=== PATIENT | female | born 1955 | race Caucasian/White ===

== ENCOUNTER 2016-07-15 06:56 | Day surgery (SDC) | payer BC ==
[~2016-07-15] VITALS: Ht 144.8 cm; Wt 58.3 kg
[2016-07-15] MEDS ORDERED: METHOTREXATE (07:45)
[2016-07-15] MEDS ORDERED: GEMFIBROZIL (07:45)
[2016-07-15] MEDS ORDERED: NORCO (07:45)
[2016-07-15] MEDS ORDERED: METFORMIN (07:45)
[2016-07-15] MEDS ORDERED: LEVOTHYROXINE (07:45)
[2016-07-15] MEDS ORDERED: JANUVIA (07:45)
[2016-07-15 07:47] VITALS: Ht 144.8 cm; Wt 58.3 kg
[2016-07-15 08:09] VITALS: BP 128/59; PULSE 55; RESP 18
[2016-07-15] MEDS ORDERED: PROPOFOL 40 ML ONE (08:44)
[2016-07-15] MEDS ORDERED: LIDOCAINE 100 MG SYRINGE ONE (08:45)
[2016-07-15] MEDS ORDERED: PROPOFOL 20 ML ONE (09:59)
[2016-07-15 10:25] VITALS: BP 119/57; PULSE 50; RESP 18
[2016-07-15] MEDS ORDERED: ATROPINE 1 MG/10 ML SYRINGE ONE (12:53)
--- NOTE | 2016-07-16 07:48 | GILP ---
DATE OF PROCEDURE: NAME OF PROCEDURES: Colonoscopy and biopsy. SURGEON: Tuyet Amin MD PREOPERATIVE DIAGNOSIS: Screening colonoscopy. POSTOPERATIVE DIAGNOSES: 1. Colonoscopy all the way to the cecum. 2. Small polyp from the sigmoid colon was removed using the biopsy forceps. 3. Flat polyp in the right colon was removed in pieces using the biopsy forceps. 4. Internal hemorrhoids. INDICATION FOR THE PROCEDURE: Ms. Rohini Rodriguez is a 61-year-old female patient who was scheduled for s creening colonoscopy. The procedure and possible complications were well explained to the patient. The patient understood and consented to the procedure. DESCRIPTION OF PROCEDURE: Under the influence of anesthesia, the colonoscope was carefully introduc ed in the rectum, and under direct vision, it was advanced all the way to the cecum. FINDINGS: The patient had a sigmoid colon polyp which was removed using the biopsy forceps. She al so had a flat polyp in the right colon, and it was removed in pieces using the biopsy forceps. She had internal hemorrhoids. She tolerated the procedure very well and there was no complication from the procedure. At the end of the procedure, she was awake with stable vital signs and she was discharged home to the care of h er family. IMPRESSION: 1. Sigmoid colon polyp was removed using the biopsy forceps. 2. Flat polyp in the right colon was removed in pieces using the biopsy forceps. 3. Internal hemorrhoids. PLAN: Await histopathology report. Depending upon the histopathology, the time for the next screen ing colonoscopy will be decided. Dictated By: TUYET GONZALEZ/YAYO Conf#: [id number] DID#: [id number]
== END 2016-07-15 10:19 | disposition home or self-care (01) ==
LOC: GIL 06:56
PROVIDERS: ATTEND Internal Medicine Gastroenterology
DX: Z12.11 Encounter for screening for malignant neoplasm of colon (principal); D12.5 Benign neoplasm of sigmoid colon; K64.8 Other hemorrhoids; E11.9 Type 2 diabetes mellitus without complications
CPT/HCPCS: 45380; 82962; 88305; J0461; J2001; Z7610

== ENCOUNTER 2017-07-14 09:42 | Outpatient (CLI) | END 2017-07-14 16:42 | disposition home or self-care (01) ==

== ENCOUNTER 2017-08-15 14:50 | Inpatient (IN) | END 2017-08-16 13:25 | disposition home or self-care (01) | DRG 337 ==

== ENCOUNTER 2017-08-21 12:16 | Emergency (ER) | END 2017-08-21 16:54 | disposition home or self-care (01) ==

== ENCOUNTER 2017-08-27 09:40 | Outpatient (CLI) | END 2017-08-27 15:30 | disposition home or self-care (01) ==

== ENCOUNTER 2017-09-01 09:38 | Outpatient (CLI) | END 2017-09-01 16:59 | disposition home or self-care (01) ==

== ENCOUNTER 2017-09-10 15:37 | Outpatient (CLI) | END 2017-09-10 15:56 | disposition home or self-care (01) ==

== ENCOUNTER → 2018-05-27 | Outpatient (CLI) | END | disposition home or self-care (01) ==

== ENCOUNTER 2018-10-27 02:10 | Inpatient (IN) | payer BC ==
[~2018-10-27] VITALS: Ht 152.4 cm; Wt 62.5 kg
[~2018-10-27 02:10] MED LIST: AMIT10TA6 PO; CALC500T91 PO; FOLI-49 PO; GABA300C16 PO; GEMF600T8 PO; HYDR200T39 PO; IBUP-1542 PO; LEVO50TA7 PO; METF-849 PO; PRED5TAB PO; PROP10TA6 PO; SITA100T11 PO; SUCR1TAB56 PO; SULF500T5 PO
[2018-10-27 02:12] VITALS: Ht 152.4 cm; Wt 62.5 kg
[2018-10-27] MEDS ORDERED: morphine 4 MG/ML VIAL IV STA ×2 (03:10→04:24)
--- NOTE | 2018-10-27 03:27 | ERD ---
ER Documentation Chief Complaint Chief Complaint abd pain strated at 2230, today; no other GI s/s HPI 63-year-old female with a history of multiple abdominal surgeries presenting with lower abdominal pain that started around 1030 last night and has been progressively worsening. She denies any associated nausea, vomiting, fever, ch ills, constipation or diarrhea. The pain has been progressively worsening since it started. She describes it as a pressure-like, aching, cramping pain that radiates to her lower back. Worse with movement. No alleviating factors. Rates pain at a 10 out of 10. Has not been passing any gas since pain started. ROS All systems reviewed and are negative except as per history of present illness. Medications Home Meds Active Scripts Ibuprofen* (Motrin*) 600 Mg Tab, 600 MG PO Q8 for PAIN AND/OR INFLAMMATION, #30 TAB Prov:RUTHIE QUEVEDO MD 08/21/17 Reported Medications Hydroxychloroquine Sulfate* (Hydroxychloroquine Sulfate*) 200 Mg Tablet, 200 MG PO BID, TAB 08/21/17 Sulfasalazine* (Sulfazine*) 500 Mg Tablet, 500 MG PO DAILY, TAB 08/21/17 Gemfibrozil* (Gemfibrozil*) 600 Mg Tablet, 600 MG PO BID, TAB 08/21/17 Sitagliptin* (Januvia*) 100 Mg Tablet, 50 MG PO DAILY, #30 TAB 08/21/17 Folic Acid* (Folic Acid*) 1 Mg Tablet, 1 MG PO DAILY, TAB 08/21/17 Sucralfate* (Carafate*) 1 Gm Tab, 1 GM PO AC MEALS , TAB 08/15/17 Propranolol Hcl* (Propranolol Hcl*) 10 Mg Tablet, 10 MG PO BID, TAB 08/15/17 Prednisone* (Prednisone*) 5 Mg Tab, 5 MG PO DAILY, TAB 08/15/17 Calcium Carbonate ([id number]) 500 Mg Tablet, 500 MG PO BID, TAB 08/15/17 Metformin* (Glucophage*) 500 Mg Tab, 500 MG PO WITH MEALS, #90 TAB 08/15/17 Levothyroxine Sodium* (Levothyroxine Sodium*) 50 Mcg Tablet, 50 MCG PO BEFORE BREAKFAST, #30 TAB 08/15/17 Gabapentin* (Gabapentin*) 300 Mg Capsule, 300 MG PO TID, #60 CAP 08/15/17 Amitriptyline Hcl* (Amitriptyline Hcl*) 10 Mg Tablet, 10 MG PO BID, #30 TAB 08/15/17 Allergies Allergies: Coded Allergies: aspirin (Unverified Allergy, Unknown, 08/21/17) ASPIRIN ALLERGY PER PRE-OP ORDER SHEET PER HEAD CHOPPER NASREEN PT REPORTS VOMITING WITH ASPIRIN 08/15/17 1511 PMhx/Soc History of Surgery: Yes (appendectomy, C-sections, multiple hernia repairs) Anesthesia Reaction: No Hx Neurological Disorder: No Hx Respiratory Disorders: No Hx Cardiac Disorders: No Hx Psychiatric Problems: No Hx Miscellaneous Medical Probl: Yes (DM, osteoporosis) Hx Alcohol Use: No Hx Substance Use: No Hx Tobacco Use: No Smoking Status: Never smoker FmHx Family History: No diabetes Physical Exam Vitals Vital Signs Date Temp Pulse Resp B/P (MAP) Pulse Ox O2 O2 Flow FiO2 Time Delivery Rate 10/27/18 53 14 120/54 98 Nasal 3.0 05:51 (76) Cannula 10/27/18 97.8 62 14 128/80 99 Room Air 02:44 (96) 10/27/18 97.8 54 19 198/79 98 02:12 (118) Physical Exam Const: In distress secondary to pain. Nontoxic Head: Atraumatic Eyes: Normal Conjunctiva ENT: Normal External Ears, Nose and Mouth. Neck: Full range of motion. No meningismus. Resp: Clear to auscultation bilaterally Cardio: Regular rate and rhythm, no murmurs Abd: Soft, mildly distended, tender to palpation in the suprapubic and left lower quadrants with no rebound or guarding. No masses. Hypoactive bowel sounds Skin: No petechiae or rashes Back: No midline or flank tenderness Ext: No cyanosis, or edema Neur: Awake and alert Psych: Normal Mood and Affect Result Diagram: 10/27/18 0240 10/27/18 0240 Results 24 hrs Laboratory Tests Test 10/27/18 02:40 White Blood Count 10.4 10^3/ul Red Blood Count 4.34 10^6/ul Hemoglobin 13.0 g/dl Hematocrit 39.1 % Mean Corpuscular Volume 90.1 fl Mean Corpuscular Hemoglobin 30.0 pg Mean Corpuscular Hemoglobin Concent 33.2 g/dl Red Cell Distribution Width 12.2 % Platelet Count 220 10^3/UL Mean Platelet Volume 10.3 fl Immature Granulocytes % 0.600 % Neutrophils % 53.7 % Lymphocytes % 38.2 % Monocytes % 6.3 % Eosinophils % 0.8 % Basophils % 0.4 % Nucleated Red Blood Cells % 0.0 /100WBC Immature Granulocytes # 0.060 10^3/ul Neutrophils # 5.6 10^3/ul Lymphocytes # 4.0 10^3/ul Monocytes # 0.7 10^3/ul Eosinophils # 0.1 10^3/ul Basophils # 0.0 10^3/ul Nucleated Red Blood Cells # 0.0 10^3/ul Urine Color YELLOW Urine Clarity CLEAR Urine pH 5.0 Urine Specific [place] 1.017 Urine Ketones NEGATIVE mg/dL Urine Nitrite NEGATIVE mg/dL Urine Bilirubin NEGATIVE mg/dL Urine Urobilinogen NEGATIVE mg/dL Urine Leukocyte Esterase NEGATIVE Louie/ul Urine Hemoglobin NEGATIVE mg/dL Urine Glucose NEGATIVE mg/dL Urine Total Protein NEGATIVE mg/dl Sodium Level 143 mmol/L Potassium Level 4.4 mmol/L Chloride Level 106 mmol/L Carbon Dioxide Level 26 mmol/L Anion Gap 11 Blood Urea Nitrogen 15 mg/dl Creatinine 0.52 mg/dl Est Glomerular Filtrat Rate mL/min > 60 mL/min Glucose Level 140 mg/dl Calcium Level 10.1 mg/dl Total Bilirubin 0.2 mg/dl Direct Bilirubin 0.00 mg/dl Indirect Bilirubin 0.2 mg/dl Aspartate Amino Transf (AST/SGOT) 37 IU/L Alanine Aminotransferase (ALT/SGPT) 31 IU/L Alkaline Phosphatase 60 IU/L Total Protein 7.8 g/dl Albumin 4.7 g/dl Globulin 3.10 g/dl Albumin/Globulin Ratio 1.51 Lipase 101 U/L Current Medications Medications Dose Sig/Cathi Start Time Status Last (Trade) Ordered Route PRN Stop Time Admin Dose Reason Admin Morphine 4 mg ONCE STAT 10/27/18 DC 10/27/18 Sulfate IV 03:10 03:29 (morphine) 10/27/18 03:12 Morphine 4 mg ONCE STAT 10/27/18 DC 10/27/18 Sulfate IV 04:24 04:28 (morphine) 10/27/18 04:25 Simethicone 160 mg ONCE ONCE 10/27/18 DC 10/27/18 (Mylicon) PO 06:00 06:02 10/27/18 06:01 Ondansetron 4 mg BRIDGE ORDER 10/27/18 HCl (Zofran PRN IV 06:30 10/28/18 Inj) NAUSEA/VOMITI 06:29 NG 650 mg ER BRIDGE 10/27/18 Acetaminophen PRN PO 06:30 10/28/18 (Tylenol .MILD PAIN 06:29 Tab) 1-3 OR TEMP Procedures/MDM EMERGENT LABS AND DIAGNOSTIC STUDIES: Lab Results above were reviewed and interpreted by me. CBC: no anemia or evidence of infection CMP: No evidence of clinically significant electrolyte abnormality, acidosis, renal failure, hypoglycemia, liver disease, or biliary obstruction Lipase: no evidence of pancreatitis UA: no evidence of infection Radiology Results as interpreted by Radiology below were reviewed by Talisha bhatti MD: CT abdomen and pelvis: No acute abnormalities. Left ovarian cyst 2.5 cm Pelvic ultrasound: Left ovarian cyst noted, no evidence of torsion or free fluid Initial Nursing notes reviewed. Previous Medical Records requested via the Electronic Health Record. EMERGENCY DEPARTMENT COURSE / MEDICAL DECISION MAKING: Differential includes but is not limited to appendicitis, colitis, cystitis, ureterolithiasis, diverticulitis, abdominal aortic dissection, bowel obstruction, fecal impaction, ovarian torsion, tubo-ovarian abscess, PID. Bloodwork, and UA ordered to evaluate for above. CT abdomen and pelvis showed a left ovarian small cyst without any other acute abnormalities. Patient was initially treated with pain medications with only minimal relief of her pain. Given her persistent severe pain, additional pain medications were given and ultrasound was done to evaluate for possible ovarian torsion. However ultr asound was normal. Upon reevaluation, patient still continues to have left lower quadrant severe abdominal pain. At this time I have a low suspicion for AAA, ischemic bowel, or aortic dissection. However given the severity of her pain, patient does not feel comfortable going home and will be admitted for observation and serial abdominal exams. Patient was accepted for admission to [facility] by Dr. House. Departure Diagnosis: Primary Impression: Abdominal pain Abdominal location: lower abdomen, unspecified Qualified Codes: R10.30 - Lower abdominal pain, unspecified Condition: Stable EKRONEN KRAUSE MD Oct 27, 2018 03:27
[2018-10-27] MEDS ORDERED: IOHEXOL 300MG/ML 150 ML BTL ONE ×2 (06:12→13:42)
[2018-10-27] MEDS ORDERED: SOD CHLORIDE 0.9% 100 ML ONE ×2 (06:12→13:42)
[2018-10-27] MEDS ORDERED: ACETAMINOPHEN 325 MG TAB PO PRN ×2 (06:30→07:00)
[2018-10-27] MEDS ORDERED: ONDANSETRON 4 MG INJ IV PRN (06:30)
[2018-10-27] MEDS ORDERED: CALC1TAB79 PO (06:58)
--- NOTE | 2018-10-27 06:58 | HP ---
Date/Time of Note Date/Time of Note DATE: 10/27/18 TIME: 06:48 Assessment/Plan VTE Prophylaxis SCD applied (from Nsg): Yes Pharmacological prophylaxis: NA/contraindicated Pharm contraindication: low risk/ambulating Lines/Catheters IV Catheter Type (from Nrsg): Saline Lock Assessment/Plan Hospital Course This is a 63-year-old female being admitted to the [facility] for: #1 intractable abdominal pain: Pain appears to be occurring at the site of previous ventral hernia repair. There is tenderness palpation over the left lower abdomen at the site of the previous hernia repair as well as pain to palpation over the right lower abdomen as well. CT of the abdomen pelvis without contrast did not show any acute abnormalities. I will proceed with a CT of the abdomen pelvis with IV and p.o. contrast to further evaluate. PRN morphine for pain. Zofran for nausea. . Patient has had a history of multiple abdominal surgeries in the past as well as hernia repairs. N.p.o. except medica tions, IV fluid hydration with normal saline. Consider surgical consultation #2 diabetes mellitus: We will check a hemoglobin A1c, hold off oral medications at the current time. #3 arthritis/psoriasis: Resume prednisone, will need to confirm whether patient is on Plaquenil consider holding this at the current time given patient's pain #4 hypothyroidism: Resume levothyroxine as indicated #5 anxiety: Resume patient's home medications indicated #6 DVT and GI prophylaxis: SCDs, Protonix since patient is on steroids Further treatment strategy will be implemented as per the clinical course. Result Diagram: 10/27/18 0240 10/27/18 0240 Results 24hrs Laboratory Tests Test 10/27/18 02:40 White Blood Count 10.4 Red Blood Count 4.34 # Hemoglobin 13.0 # Hematocrit 39.1 # Mean Corpuscular Volume 90.1 Mean Corpuscular Hemoglobin 30.0 Mean Corpuscular Hemoglobin Concent 33.2 Red Cell Distribution Width 12.2 Platelet Count 220 Mean Platelet Volume 10.3 Immature Granulocytes % 0.600 H Neutrophils % 53.7 Lymphocytes % 38.2 Monocytes % 6.3 Eosinophils % 0.8 Basophils % 0.4 Nucleated Red Blood Cells % 0.0 Immature Granulocytes # 0.060 H Neutrophils # 5.6 Lymphocytes # 4.0 H Monocytes # 0.7 Eosinophils # 0.1 Basophils # 0.0 Nucleated Red Blood Cells # 0.0 Urine Color YELLOW Urine Clarity CLEAR Urine pH 5.0 Urine Specific [place] 1.017 Urine Ketones NEGATIVE Urine Nitrite NEGATIVE Urine Bilirubin NEGATIVE Urine Urobilinogen NEGATIVE Urine Leukocyte Esterase NEGATIVE Urine Hemoglobin NEGATIVE Urine Glucose NEGATIVE Urine Total Protein NEGATIVE Sodium Level 143 Potassium Level 4.4 Chloride Level 106 Carbon Dioxide Level 26 Anion Gap 11 Blood Urea Nitrogen 15 Creatinine 0.52 Est Glomerular Filtrat Rate mL/min > 60 Glucose Level 140 Calcium Level 10.1 Total Bilirubin 0.2 Direct Bilirubin 0.00 Indirect Bilirubin 0.2 Aspartate Amino Transf (AST/SGOT) 37 Alanine Aminotransferase (ALT/SGPT) 31 Alkaline Phosphatase 60 Total Protein 7.8 Albumin 4.7 Globulin 3.10 Albumin/Globulin Ratio 1.51 Lipase 101 HPI/ROS Admit Date/Time Admit Date/Time Hx of Present Illness Chief complaint: Left lower quadrant abdominal pain radiating to the whole abdomen This is a 63-year-old female with a past medical history of multiple abdominal surgeries and status post multiple hernia repairs who presented to the emergency department with left lower abdomen pain. Patient reports that she started experiencing pain last night of the left lower abdomen that then radiated across to the right side and then up her abdomen into the back. She took some anti-gas pain thinking that this was related to gas however it did not get better. She stated that the pain came in waves every 5 to 15 minutes. As the pain continued to get worse she came into the emergency department. Patient denies any nausea or vomiting. She does report that she had 2 bowel movements yesterday. She denies any fevers. She does report that the pain on the left side is around the area of her previous ventral hernia. Denies any hematochezia or hematuria or hematemesis. Allergies: Aspirin medications: See Aug Const: As per HPI Eyes : No pain discharge or redness or change in visual acuity ENT: No pain, sore throat, congestion, congestion, dysphagia or discharge Respiratory: No shortness of breath, cough, sputum, wheezing, or pleuritic pain Cardiovascular: No chest pain, palpitation, PND, or edema GI : As per HPI Genitourinary: No dysuria, hematuria, flank pain , discharge or CVA tenderness Musculoskeletal: No joint pain, back pain, neck pain, restricted range of motion in neck or joints Skin: No rash, bruising or hives Neuro: No headache, dizziness, syncope, seizure, focal weakness Endocrine: No polyuria, polydipsia, temperature intolerance Psych: No hallucination, depression, anxiety or suicidal ideation PMH/Family/Social Past Medical History Arthritis/psoriasis, mood disorder, Medications Current Medications Ondansetron HCl (Zofran Inj) 4 mg BRIDGE ORDER PRN IV NAUSEA/VOMITING; Start 10/27/18 at 06:30; Stop 10/28/18 at 06:29 Acetaminophen (Tylenol Tab) 650 mg ER BRIDGE PRN PO .MILD PAIN 1-3 OR TEMP; Start 10/27/18 at 06:30; Stop 10/28/18 at 06:29 Coded Allergies: aspirin (Unverified Allergy, Unknown, 10/27/18) ASPIRIN ALLERGY PER PRE-OP ORDER SHEET PER PSYCHOLOGY TECHNICIAN NASREEN, PT REPORTS VOMITING WITH ASPIRIN 08/15/17 1511 Past Surgical History History of about 41 years ago and then at 37 years ago. Status post hernia repair, presumably on the left about 17 years ago. Status post appendicitis about 15 years ago. Abdominal ventral hernias (small 4 cm lower midline partial hernia; complex right lower quadrant 6 cm x 3 cm ventral hernia in between muscle layers). S/p laparoscopic assisted complex abdominal ventral hernia repair of the right lower quadrant 6 cm x 3 cm defect site with layer closure reinforced with Marlex mesh 13 cm x 7.5 cm, primary repair of partial midline ventral hernia (no mesh) and laparoscopic lysis of adhesions at [facility] Violeta Merchant MD on 08/15/17. Family History Significant Family History: no pertinent family hx Social History Alcohol Use: none Smoking Status: Never smoker Drug Use: none Exam/Review of Systems Vital Signs Vitals Vital Signs Date Temp Pulse Resp B/P (MAP) Pulse Ox O2 O2 Flow FiO2 Time Delivery Rate 10/27/18 53 14 120/54 98 Nasal 3.0 05:51 (76) Cannula 10/27/18 97.8 02:44 Exam Exam General: Patient is a pleasant female currently lying in bed in mild distress from abdominal pain HEENT: Atraumatic, normocephalic. The pupils are equal, round and reactive. Extraocular motor are intact Neck: Supple with full range of motion. No rigidity or meningismus Chest: Nontender Lungs: Clear to auscultation bilaterally no crackles rales or wheezing Heart: Normal S1-S2, Regular rhythm and rate. No murmur, S3, or S4 Abdomen: Soft , nontender, nondistended , bowel sounds are present. No guarding no rebound tenderness , No masses or organomegaly. No costovertebral temporal angle mass Extremities: Normal to inspection, no edema no cyanosis Neurologic: Normal mental status, speech normal, cranial nerves II through XII are intact, motor and sensory are intact, no focal weakness Additional Comments PROCEDURE: CT Abdomen and pelvis without contrast. CLINICAL INDICATION: Abdominal pain TECHNIQUE: CT scan of the abdomen and pelvis without contrast was performed on a multidetector high-resolution CT scan. . Coronal and sagittal reformatted images were obtained from the axial source images. Standard CT scan of the abdomen pelvis without contrast protocols were performed. The total exam CTDI equals 14.67 mGy and the total exam DLP equals 790.37 mGy- cm. One or more of the following dose reduction techniques were used: - Automated exposure control. - Adjustment of the mA and/or kV according to patient size. Use of iterative reconstruction technique. Dicom images are available COMPARISON: CT abdomen pelvis 08/21/2017 FINDINGS: The kidneys are normal in size without calcified calculi hydronephrosis or intra renal masses bilaterally. No evidence of ureteral calcified calculi or dil atation. Partially contracted otherwise unremarkable urinary bladder. Status post hysterectomy. No change 2.5 cm left adnexal cyst consistent with ovarian / para ovarian cyst. A follow-up pelvic ultrasound may be helpful. No other adnexal masses. Diverticular changes of the descending and sigmoid colon without CT evidence of diverticulitis. Colon is otherwise unremarkable. A definite appendix is not visualized however there is no CT evidence of appendicitis. Stomach and small bowel unremarkable. Liver spleen pancreas adrenal glands and gallbladder unremarkable. No evidence biliary ductal dilation. No evidence of intra-abdominal free air, free fluid, abscesses or lymphadenopathy. Atherosclerosis of the aorta without aneurysm. Coronary artery disease. Tiny calcified granuloma medial right lower lobe. Mild chronic basilar interstitial lung disease. Abdominal pelvic wall unremarkable. Degenerate changes lower thoracic and lumbar spine. No acute osseous findings are osteoblastic/osteolytic lesions. IMPRESSION: 1. Diverticulosis of the descending and sigmoid colon without CT evidence of diverticulitis. 2. No change 2.5 cm left adnexal cyst consistent with ovarian / para ovarian cyst. Follow-up pelvic ultrasound may be helpful. 3. No calcified urinary calculi or obstructive uropathy. RPTAT:AAJJ David Tian Physician Date Time Electronically viewed and signed by David Tian Physician on 10/27/2018 04:24 BM/ CC: RONEN ARAUJO MD [id number] HONG GAINES Oct 27, 2018 06:58
[2018-10-27] MEDS ORDERED: GABA300C16 PO (06:59)
[2018-10-27] MEDS ORDERED: LEVO50TA71 PO (06:59)
[2018-10-27] MEDS ORDERED: HYDR200T5 PO (06:59)
[2018-10-27] MEDS ORDERED: DOCUSATE SODIUM 100 MG CAP PO PRN (07:00)
[2018-10-27] MEDS ORDERED: NACL 0.9% 3 ML SYG IV SCH (07:00)
[2018-10-27] MEDS ORDERED: METF500T24 PO (07:00)
[2018-10-27] MEDS ORDERED: PRED5TAB PO (07:00)
[2018-10-27] MEDS ORDERED: BISACODYL (EC) 5 MG TAB PO PRN (07:00)
[2018-10-27] MEDS ORDERED: PROP10TA6 PO (07:01)
[2018-10-27] MEDS ORDERED: SUCR1TAB56 PO (07:01)
[2018-10-27] MEDS ORDERED: SULF500T5 PO (07:02)
[2018-10-27] MEDS ORDERED: TRA100 PO (07:02)
[2018-10-27] MEDS ORDERED: KETOROLAC 15 MG INJ IV PRN (07:30)
[2018-10-27] MEDS ORDERED: PANTOPRAZOLE 40 MG INJ IV ONE (07:30)
[2018-10-27 07:49] VITALS: BP 120/69; PULSE 53; RESP 20
[2018-10-27] MEDS ORDERED: IOHEXOL 14.3 MG(I)/ML (ADULT) BTL PO ONE (08:00)
[2018-10-27] MEDS: morphine 2 MG INJ IV PRN ×3 (08:22→16:35)
[2018-10-27] MEDS: predniSONE 5 MG TAB PO SCH (09:00)
[2018-10-27] MEDS: GABAPENTIN 300 MG CAP PO SCH ×3 (09:00→20:22)
[2018-10-27] MEDS: SOD CHLORIDE 0.9% 1,000 ML IV SCH ×2 (10:13→20:18)
--- NOTE | 2018-10-27 13:47 | PN ---
Date/Time of Note Date/Time of Note DATE: 10/27/18 TIME: 13:41 Assessment/Plan VTE Prophylaxis Risk score (from Nsg)>0 risk: 3 SCD applied (from Nsg): Yes Pharmacological prophylaxis: NA/contraindicated Pharm contraindication: low risk/ambulating Lines/Catheters IV Catheter Type (from Nrsg): Peripheral IV Assessment/Plan Assessment/Plan 1. Intractable abdominal pain - CT scan with IV/PO contrast ordered for further evaluation given noncontrast was unrevealing - pain control and Zofran PRN - Pelvic US reveals left ovarian cyst 2. Diabetes mellitus - A1c ordered - ISS and accuchecks 3. Arthritis/psoriasis - continue on Prednisone 4. Hypothyroidism - continue levothyroxine 5. Anxiety - stable 6. Disposition - Awaiting CT scan with contrast and plan of care based on results. Result Diagram: 10/27/18 0240 10/27/18 0240 Results 24hrs Laboratory Tests Test 10/27/18 02:40 White Blood Count 10.4 Red Blood Count 4.34 # Hemoglobin 13.0 # Hematocrit 39.1 # Mean Corpuscular Volume 90.1 Mean Corpuscular Hemoglobin 30.0 Mean Corpuscular Hemoglobin Concent 33.2 Red Cell Distribution Width 12.2 Platelet Count 220 Mean Platelet Volume 10.3 Immature Granulocytes % 0.600 H Neutrophils % 53.7 Lymphocytes % 38.2 Monocytes % 6.3 Eosinophils % 0.8 Basophils % 0.4 Nucleated Red Blood Cells % 0.0 Immature Granulocytes # 0.060 H Neutrophils # 5.6 Lymphocytes # 4.0 H Monocytes # 0.7 Eosinophils # 0.1 Basophils # 0.0 Nucleated Red Blood Cells # 0.0 Urine Color YELLOW Urine Clarity CLEAR Urine pH 5.0 Urine Specific [place] 1.017 Urine Ketones NEGATIVE Urine Nitrite NEGATIVE Urine Bilirubin NEGATIVE Urine Urobilinogen NEGATIVE Urine Leukocyte Esterase NEGATIVE Urine Hemoglobin NEGATIVE Urine Glucose NEGATIVE Urine Total Protein NEGATIVE Sodium Level 143 Potassium Level 4.4 Chloride Level 106 Carbon Dioxide Level 26 Anion Gap 11 Blood Urea Nitrogen 15 Creatinine 0.52 Est Glomerular Filtrat Rate mL/min > 60 Glucose Level 140 Calcium Level 10.1 Total Bilirubin 0.2 Direct Bilirubin 0.00 Indirect Bilirubin 0.2 Aspartate Amino Transf (AST/SGOT) 37 Alanine Aminotransferase (ALT/SGPT) 31 Alkaline Phosphatase 60 Total Protein 7.8 Albumin 4.7 Globulin 3.10 Albumin/Globulin Ratio 1.51 Lipase 101 Subjective 24 Hr Interval Summary Free Text/Dictation Patient is complaining of diffuse abdominal pain that starts in LLQ then radiat es to naval and RLQ then epigastric area. Exam/Review of Systems Exam Vitals Vital Signs Date Temp Pulse Resp B/P (MAP) Pulse Ox O2 O2 Flow FiO2 Time Delivery Rate 10/27/18 97.5 53 20 120/69 96 07:49 (86) 10/27/18 Nasal 2.0 06:49 Cannula Exam General: distress secondary to pain. Chest: Nontender Lungs: Clear to auscultation bilaterally no crackles rales or wheezing Heart: Normal S1-S2, Regular rhythm and rate. No murmur, S3, or S4 Abdomen: Soft , tender diffusely, nondistended , bowel sounds are present. No guarding no rebound tenderness Extremities: Normal to inspection, no edema no cyanosis Results Results 24hrs Laboratory Tests Test 10/27/18 02:40 White Blood Count 10.4 Red Blood Count 4.34 # Hemoglobin 13.0 # Hematocrit 39.1 # Mean Corpuscular Volume 90.1 Mean Corpuscular Hemoglobin 30.0 Mean Corpuscular Hemoglobin Concent 33.2 Red Cell Distribution Width 12.2 Platelet Count 220 Mean Platelet Volume 10.3 Immature Granulocytes % 0.600 H Neutrophils % 53.7 Lymphocytes % 38.2 Monocytes % 6.3 Eosinophils % 0.8 Basophils % 0.4 Nucleated Red Blood Cells % 0.0 Immature Granulocytes # 0.060 H Neutrophils # 5.6 Lymphocytes # 4.0 H Monocytes # 0.7 Eosinophils # 0.1 Basophils # 0.0 Nucleated Red Blood Cells # 0.0 Urine Color YELLOW Urine Clarity CLEAR Urine pH 5.0 Urine Specific [place] 1.017 Urine Ketones NEGATIVE Urine Nitrite NEGATIVE Urine Bilirubin NEGATIVE Urine Urobilinogen NEGATIVE Urine Leukocyte Esterase NEGATIVE Urine Hemoglobin NEGATIVE Urine Glucose NEGATIVE Urine Total Protein NEGATIVE Sodium Level 143 Potassium Level 4.4 Chloride Level 106 Carbon Dioxide Level 26 Anion Gap 11 Blood Urea Nitrogen 15 Creatinine 0.52 Est Glomerular Filtrat Rate mL/min > 60 Glucose Level 140 Calcium Level 10.1 Total Bilirubin 0.2 Direct Bilirubin 0.00 Indirect Bilirubin 0.2 Aspartate Amino Transf (AST/SGOT) 37 Alanine Aminotransferase (ALT/SGPT) 31 Alkaline Phosphatase 60 Total Protein 7.8 Albumin 4.7 Globulin 3.10 Albumin/Globulin Ratio 1.51 Lipase 101 Medications Medication Current Medications Ondansetron HCl (Zofran Inj) 4 mg BRIDGE ORDER PRN IV NAUSEA/VOMITING; Start 10/27/18 at 06:30; Stop 10/28/18 at 06:29 Acetaminophen (Tylenol Tab) 650 mg ER BRIDGE PRN PO .MILD PAIN 1-3 OR TEMP; Start 10/27/18 at 06:30; Stop 10/28/18 at 06:29 Sodium Chloride 1,000 ml @ 75 mls/hr [id number] IV Last administered on 10/27/18at 10:13; Admin Dose 75 MLS/HR; Start 10/27/18 at 06:58 IV Flush (NS 3 ml) 3 ml PER PROTOCOL IV ; Start 10/27/18 at 07:00 Ondansetron HCl (Zofran Inj) 4 mg Q6H PRN IV NAUSEA/VOMITING; Start 10/27/18 at 07:00 Acetaminophen (Tylenol Tab) 650 mg Q6H PRN PO .PAIN 1-3 OR TEMP; Start 10/27/18 at 07:00 Morphine Sulfate (morphine) 2 mg Q4H PRN IV .SEVERE PAIN 7-10 Last administered on 10/27/18at 12:45; Admin Dose 2 MG; Start 10/27/18 at 07:00 Docusate Sodium (Colace) 100 mg Q12H PRN PO .CONSTIPATION; Start 10/27/18 at 07:00 Bisacodyl (Dulcolax) 5 mg DAILY PRN PO .CONSTIPATION; Start 10/27/18 at 07:00 Ketorolac Tromethamine (Toradol) 15 mg Q6H PRN IV PAIN Last administered on 10/27/18at 10:00; Admin Dose 15 MG; Start 10/27/18 at 07:30; Stop 10/30/18 at 07:29 Gabapentin (Neurontin) 300 mg TID PO ; Start 10/27/18 at 09:00 Levothyroxine Sodium (Synthroid) 50 mcg BEFORE BREAKFAST PO ; Start 10/28/18 at 07:00 Prednisone (Prednisone) 5 mg DAILY PO ; Start 10/27/18 at 09:00 Trazodone HCl (Desyrel) 100 mg QHS PO ; Start 10/27/18 at 21:00 Pantoprazole (Protonix Iv) 40 mg DAILY@06 IV ; Start 10/28/18 at 06:00 RODNEY ATKINSON MD Oct 27, 2018 13:47
[2018-10-27 14:20] VITALS: BP 125/60; PULSE 57; RESP 20
[2018-10-27] MEDS ORDERED: HYDROmorphONE 1 MG/ML SYG IV PRN (17:00)
[2018-10-27] MEDS: ONDANSETRON 4 MG INJ IV PRN (18:14)
[2018-10-27] MEDS: HYOSCYAMINE 0.125 MG SUBL TAB PO PRN (18:15)
[2018-10-27] MEDS: traZODone 100 MG TAB PO SCH (20:23)
[2018-10-27 20:51] VITALS: BP 136/73; PULSE 63; RESP 18
[2018-10-27] MEDS: HYDROmorphONE 2 MG/ML SYG IV PRN (21:00)
[2018-10-27] MEDS: METHYLPREDNISOLONE 40 MG INJ IV SCH (23:12)
[2018-10-28] MEDS: HYDROmorphONE 2 MG/ML SYG IV PRN ×4 (01:33→13:56)
[2018-10-28 02:00] VITALS: BP 131/60; PULSE 98; RESP 18
[2018-10-28] MEDS: METHYLPREDNISOLONE 40 MG INJ IV SCH ×2 (05:48→13:01)
[2018-10-28] MEDS: SOD CHLORIDE 0.9% 1,000 ML IV SCH (05:52)
[2018-10-28] MEDS ORDERED: PANTOPRAZOLE 40 MG INJ IV SCH (06:00)
[2018-10-28] MEDS: LEVOTHYROXINE 50 MCG TAB PO SCH (06:21)
[2018-10-28 07:52] VITALS: BP 105/59; PULSE 95; RESP 18
[2018-10-28] MEDS: GABAPENTIN 300 MG CAP PO SCH ×3 (09:31→20:09)
[2018-10-28] MEDS: predniSONE 5 MG TAB PO SCH (09:31)
[2018-10-28] MEDS: HYOSCYAMINE 0.125 MG SUBL TAB PO PRN ×2 (11:21→16:09)
--- NOTE | 2018-10-28 12:22 | PN ---
Date/Time of Note Date/Time of Note DATE: 10/28/18 TIME: 12:18 Assessment/Plan VTE Prophylaxis Risk score (from Ns)>0 risk: 3 SCD applied (from [facility] [place] SCD contraindicated: patient refusal Pharmacological prophylaxis: NA/contraindicated Pharm contraindication: bleeding Lines/Catheters IV C[facility]ter Type (from [facility]): Peripheral IV Urinary Cath still in place: No Assessment/Plan Assessment/Plan 1. Acute lower GI bleeding - started at 2am with blood clots - GI consulted for further recommendations. last colonoscopy was 3 years ago with findings of polyps per pt - CT scan results noted - PPI on board - Clear diet 2. Acute enteritis - pain control and supportive care 3. Diabetes mellitus - A1c noted - ISS and accuchecks 4. Arthritis/psoriasis - will hold Prednisone in setting of GI bleed 5. Hypothyroidism - continue levothyroxine 6. Anxiety - stable 7. Disposition - GI consulted for evaluation of lower GI bleed Result Diagram: 10/28/18 0435 10/28/18 0435 Results 24hrs Laboratory Tests Test 10/28/18 03:55 10/28/18 04:35 10/28/18 07:00 Stool Occult Blood POSITIVE White Blood Count 10.7 Red Blood Count 4.15 L Hemoglobin 12.5 Hematocrit 37.9 Mean Corpuscular Volume 91.3 Mean Corpuscular Hemoglobin 30.1 Mean Corpuscular Hemoglobin Concent 33.0 Red Cell Distribution Width 12.0 Platelet Count 184 Mean Platelet Volume 10.1 Immature Granulocytes % 0.400 Neutrophils % 91.0 H Lymphocytes % 6.2 L Monocytes % 2.3 Eosinophils % 0.0 Basophils % 0.1 Nucleated Red Blood Cells % 0.0 Immature Granulocytes # 0.040 H Neutrophils # 9.8 H Lymphocytes # 0.7 L Monocytes # 0.3 Eosinophils # 0.0 Basophils # 0.0 Nucleated Red Blood Cells # 0.0 Sodium Level 141 Potassium Level 4.6 Chloride Level 109 Carbon Dioxide Level 24 Anion Gap 8 Blood Urea Nitrogen 16 Creatinine 0.49 Est Glomerular Filtrat Rate mL/min > 60 Glucose Level 178 Hemoglobin A1c 6.6 H Calcium Level 8.4 Magnesium Level 2.0 Total Bilirubin 0.4 Direct Bilirubin 0.00 Indirect Bilirubin 0.4 Aspartate Amino Transf (AST/SGOT) 24 Alanine Aminotransferase (ALT/SGPT) 22 Alkaline Phosphatase 43 Total Protein 6.0 #L Albumin 3.6 # Globulin 2.40 Albumin/Globulin Ratio 1.50 Triglycerides Level 89 Cholesterol Level 179 LDL Cholesterol, Calculated 112 HDL Cholesterol 49 Cholesterol/HDL Ratio 3.6 Thyroid Stimulating Hormone (TSH) 0.335 L Lactic Acid Level 1.1 Subjective 24 Hr Interval Summary Free Text/Dictation Patient still experiencing severe pain. She states she was experiencing bright blood with clots per rectum starting at 2am. CT findings and plan of care discussed with patient and nurse at bedside. Exam/Review of Systems Exam Vitals Vital Signs Date Temp Pulse Resp B/P (MAP) Pulse Ox O2 O2 Flow FiO2 Time Delivery Rate 10/28/18 98.4 95 18 105/59 95 07:52 (74) 10/27/18 Nasal 2.0 06:49 Cannula Intake and Output 10/27/18 10/27/18 10/28/18 1515:00 23:00 07:00 IntakeIntake Total 225 ml 360 ml OutputOutput Total 200 ml BalanceBalance 225 ml 160 ml Exam General: distress secondary to pain. answering questions appropriately Chest: Nontender Lungs: Clear to auscultation bilaterally no crackles rales or wheezing Heart: Normal S1-S2, Regular rhythm and rate. No murmur, S3, or S4 Abdomen: Soft , tender diffusely, nondistended , bowel sounds are present. No guarding no rebound tenderness Extremities: Normal to inspection, no edema no cyanosis Results Results 24hrs Laboratory Tests Test 10/28/18 03:55 10/28/18 04:35 10/28/18 07:00 Stool Occult Blood POSITIVE White Blood Count 10.7 Red Blood Count 4.15 L Hemoglobin 12.5 Hematocrit 37.9 Mean Corpuscular Volume 91.3 Mean Corpuscular Hemoglobin 30.1 Mean Corpuscular Hemoglobin Concent 33.0 Red Cell Distribution Width 12.0 Platelet Count 184 Mean Platelet Volume 10.1 Immature Granulocytes % 0.400 Neutrophils % 91.0 H Lymphocytes % 6.2 L Monocytes % 2.3 Eosinophils % 0.0 Basophils % 0.1 Nucleated Red Blood Cells % 0.0 Immature Granulocytes # 0.040 H Neutrophils # 9.8 H Lymphocytes # 0.7 L Monocytes # 0.3 Eosinophils # 0.0 Basophils # 0.0 Nucleated Red Blood Cells # 0.0 Sodium Level 141 Potassium Level 4.6 Chloride Level 109 Carbon Dioxide Level 24 Anion Gap 8 Blood Urea Nitrogen 16 Creatinine 0.49 Est Glomerular Filtrat Rate mL/min > 60 Glucose Level 178 Hemoglobin A1c 6.6 H Calcium Level 8.4 Magnesium Level 2.0 Total Bilirubin 0.4 Direct Bilirubin 0.00 Indirect Bilirubin 0.4 Aspartate Amino Transf (AST/SGOT) 24 Alanine Aminotransferase (ALT/SGPT) 22 Alkaline Phosphatase 43 Total Protein 6.0 #L Albumin 3.6 # Globulin 2.40 Albumin/Globulin Ratio 1.50 Triglycerides Level 89 Cholesterol Level 179 LDL Cholesterol, Calculated 112 HDL Cholesterol 49 Cholesterol/HDL Ratio 3.6 Thyroid Stimulating Hormone (TSH) 0.335 L Lactic Acid Level 1.1 Medications Medication Current Medications Sodium Chloride 1,000 ml @ 75 mls/hr [id number] IV Last administered on 10/28/18 05:52; Admin Dose 75 MLS/HR; Start 10/27/18 at 06:58 IV Flush (NS 3 ml) 3 ml PER PROTOCOL IV ; Start 10/27/18 at 07:00 Ondansetron HCl (Zofran Inj) 4 mg Q6H PRN IV NAUSEA/VOMITING Last administered on 10/27/18at 18:14; Admin Dose 4 MG; Start 10/27/18 at 07:00 Acetaminophen (Tylenol Tab) 650 mg Q6H PRN PO .PAIN 1-3 OR TEMP; Start 10/27/18 at 07:00 Docusate Sodium (Colace) 100 mg Q12H PRN PO .CONSTIPATION; Start 10/27/18 at 07:00 Bisacodyl (Dulcolax) 5 mg DAILY PRN PO .CONSTIPATION; Start 10/27/18 at 07:00 Gabapentin (Neurontin) 300 mg TID PO Last administered on 10/28/18 09:31; Admin Dose 300 MG; Start 10/27/18 at 09:00 Levothyroxine Sodium (Synthroid) 50 mcg BEFORE BREAKFAST PO Last administered on 10/28/18 06:21; Admin Dose 50 MCG; Start 10/28/18 at 07:00 Prednisone (Prednisone) 5 mg DAILY PO Last administered on 10/28/18 09:31; Admin Dose 5 MG; Start 10/27/18 at 09:00; Status Hold Trazodone HCl (Desyrel) 100 mg QHS PO Last administered on 10/27/18 20:23; Admin Dose 100 MG; Start 10/27/18 at 21:00 Hyoscyamine (Levsin (Sl)) 0.25 mg Q4H PRN PO abdominal cramps Last administered on 10/28/18at 11:21; Admin Dose 0.25 MG; Start 10/27/18 at 17:00 Hydromorphone HCl (Dilaudid) 1.5 mg Q3H PRN IV SEVERE PAIN LEVEL 7-10 Last administered on 10/28/18at 10:53; Admin Dose 1.5 MG; Start 10/27/18 at 21:00 Methylprednisolone Sodium Succinate (Solu-Medrol) 20 mg Q8 IV Last administered on 10/28/18at 05:48; Admin Dose 20 MG; Start 10/27/18 at 22:00; Stop 10/28/18 at 21:59 Pantoprazole (Protonix Iv) 40 mg BID IV ; Start 10/28/18 at 21:00 Insulin Aspart (Novolog Insulin Pen) NOVOLOG *MILD* ALGORITHM WITH MEALS BEDTIME SC ; Start 10/28/18 at 12:00 RODNEY ATKINSON MD October 28, 2018 12:21
[2018-10-28] MEDS: INSULIN ASPART [NOVOLOG] 3 ML PEN SC SCH ×3 (12:58→20:22)
[2018-10-28 14:02] VITALS: BP 117/59; PULSE 96; RESP 16
[2018-10-28] MEDS ORDERED: LORAZEPAM 2 MG INJ IV PRN (15:00)
[2018-10-28] MEDS: HYDROmorphONE 1 MG/ML SYG IV PRN ×2 (17:04→20:05)
[2018-10-28] MEDS ORDERED: MAGNESIUM CITRATE 300 ML BTL PO ONE (17:30)
--- NOTE | 2018-10-28 17:44 | CONS ---
Assessment/Plan Assessment/Plan Hospital Course (Demo Recall) Summary Assessment and Plan: Assessment: Hematochezia Abdominal pain -Enteritis on imaging Personal hx of colon polyps, Jun 2016 -Pathology returned as sessile serrated polyp with focal low-grade dysplasia, no evidence of malignancy. OA/RA- on prednisone Psoriasis Diabetes mellitus Hypothyroidism Plan: Clear liquid diet NPO after 10/29/18 at 0800 Colonoscopy 10/29/18- in the afternoon Endoscopy - risks/benefits/alternatives/indications of procedure and sedation/anesthesia discussed with patient who states understanding and gives informed consent to proceed. Monitor H/H transfuse for hgb less than 7.5 Patient seen in collaboration with CC: DEEPTHI GILBERT MD ; Consultation Date/Type/Reason Admit Date/Time Date of Consultation: October 28, 2018 Type of Consult GI Reason for Consultation Hematochezia Date/Time of Note DATE: 10/28/18 TIME: 17:35 Hx of Present Illness This is a 63-year-old female with past medical history of diabetes, psoriasis, OA/RA, personal history of polyps, hypothyroidism who presented to the hospital with complaints of intractable abdominal pain here she underwent imaging during hospitalization including CT abdomen pelvis with IV contrast showing focal enteritis left lower quadrant and slightly increased mesenteric edema and pelvic free fluid, hepatic steatosis, colonic diverticulosis without diverticulitis, status post hysterectomy and left ovary demonstrates a 2.7 cm cyst, certainly benign no imaging for his recommended. During hospitalization patient had episode of hematochezia with clots. GI has been consulted for further evaluation. At time evaluation patient continues to complain of abdominal pain she states her last colonoscopy was completed here in 2016, results showing a small polyp in sigmoid colon which was removed and a flat polyp in the right colon was removed in pieces, internal hemorrhoids. Pathology returned as sessile serrated polyp with focal low-grade dysplasia, no evidence of malignancy. Review of Systems: A 12 system, review was conducted and is negative except as noted in the HPI or here. Past Medical History Home Meds Reported Medications Sulfasalazine* (Sulfazine*) 500 Mg Tablet, 1500 MG PO BID, TAB 10/27/18 Trazodone Hcl* (Trazodone Hcl*) 100 Mg Tablet, 100 MG PO QHS, #30 TAB 10/27/18 Sucralfate* (Carafate*) 1 Gm Tab, 1 GM PO AC MEALS AND BEDTIME, TAB 10/27/18 Propranolol Hcl* (Propranolol Hcl*) 10 Mg Tablet, 10 MG PO BID, TAB 10/27/18 Prednisone* (Prednisone*) 5 Mg Tab, 5 MG PO DAILY, TAB 10/27/18 Metformin Hcl* (Metformin Hcl*) 500 Mg Tablet, 500 MG PO WITH BREAKFAST DINNE, #60 TAB 10/27/18 Levothyroxine Sodium* (Levoxyl*) 50 Mcg Tablet, 50 MCG PO BEFORE BREAKFAST, #30 TAB 10/27/18 Hydroxychloroquine Sulfate* (Plaquenil*) 200 Mg Tab, 200 MG PO BID, TAB 10/27/18 Gabapentin* (Gabapentin*) 300 Mg Capsule, 300 MG PO TID, #90 CAP 10/27/18 Calcium Carbonate/Vitamin D3 (Oysco 500+D Tablet) 1 Each Tablet, 1 EACH PO BID, TAB 10/27/18 Discontinued Reported Medications Hydroxychloroquine Sulfate* (Hydroxychloroquine Sulfate*) 200 Mg Tablet, 200 MG PO BID, TAB 08/21/17 Sulfasalazine* (Sulfazine*) 500 Mg Tablet, 500 MG PO DAILY, TAB 08/21/17 Gemfibrozil* (Gemfibrozil*) 600 Mg Tablet, 600 MG PO BID, TAB 08/21/17 Sitagliptin* (Januvia*) 100 Mg Tablet, 50 MG PO DAILY, #30 TAB 08/21/17 Folic Acid* (Folic Acid*) 1 Mg Tablet, 1 MG PO DAILY, TAB 08/21/17 Sucralfate* (Carafate*) 1 Gm Tab, 1 GM PO AC MEALS , TAB 08/15/17 Propranolol Hcl* (Propranolol Hcl*) 10 Mg Tablet, 10 MG PO BID, TAB 08/15/17 Prednisone* (Prednisone*) 5 Mg Tab, 5 MG PO DAILY, TAB 08/15/17 Calcium Carbonate ([id number]) 500 Mg Tablet, 500 MG PO BID, TAB 08/15/17 Metformin* (Glucophage*) 500 Mg Tab, 500 MG PO WITH MEALS, #90 TAB 08/15/17 Levothyroxine Sodium* (Levothyroxine Sodium*) 50 Mcg Tablet, 50 MCG PO BEFORE BREAKFAST, #30 TAB 08/15/17 Gabapentin* (Gabapentin*) 300 Mg Capsule, 300 MG PO TID, #60 CAP 08/15/17 Amitriptyline Hcl* (Amitriptyline Hcl*) 10 Mg Tablet, 10 MG PO BID, #30 TAB 08/15/17 Discontinued Scripts Ibuprofen* (Motrin*) 600 Mg Tab, 600 MG PO Q8 for PAIN AND/OR INFLAMMATION, #30 TAB Prov:RUTHIE QUEVEDO MD 08/21/17 Medications Current Medications Sodium Chloride 1,000 ml @ 75 mls/hr [id number] IV Last administered on 10/28/18 05:52; Admin Dose 75 MLS/HR; Start 10/27/18 at 06:58 IV Flush (NS 3 ml) 3 ml PER PROTOCOL IV ; Start 10/27/18 at 07:00 Ondansetron HCl (Zofran Inj) 4 mg Q6H PRN IV NAUSEA/VOMITING Last administered on 10/27/18at 18:14; Admin Dose 4 MG; Start 10/27/18 at 07:00 Acetaminophen (Tylenol Tab) 650 mg Q6H PRN PO .PAIN 1-3 OR TEMP; Start 10/27/18 at 07:00 Docusate Sodium (Colace) 100 mg Q12H PRN PO .CONSTIPATION; Start 10/27/18 at 07:00 Bisacodyl (Dulcolax) 5 mg DAILY PRN PO .CONSTIPATION; Start 10/27/18 at 07:00 Gabapentin (Neurontin) 300 mg TID PO Last administered on 10/28/18at 13:01; Admin Dose 300 MG; Start 10/27/18 at 09:00 Levothyroxine Sodium (Synthroid) 50 mcg BEFORE BREAKFAST PO Last administered on 10/28/18 06:21; Admin Dose 50 MCG; Start 10/28/18 at 07:00 Prednisone (Prednisone) 5 mg DAILY PO Last administered on 10/28/18 09:31; Admin Dose 5 MG; Start 10/27/18 at 09:00; Status Hold Trazodone HCl (Desyrel) 100 mg QHS PO Last administered on 10/27/18 20:23; Admin Dose 100 MG; Start 10/27/18 at 21:00 Hyoscyamine (Levsin (Sl)) 0.25 mg Q4H PRN PO abdominal cramps Last administered on 5/1/19at 16:09; Admin Dose 0.25 MG; Start 10/27/18 at 17:00 Methylprednisolone Sodium Succinate (Solu-Medrol) 20 mg Q8 IV Last administered on 10/28/18at 13:01; Admin Dose 20 MG; Start 10/27/18 at 22:00; Stop 10/28/18 at 21:59 Pantoprazole (Protonix Iv) 40 mg BID IV ; Start 10/28/18 at 21:00 Insulin Aspart (Novolog Insulin Pen) NOVOLOG *MILD* ALGORITHM WITH MEALS BEDTIME SC Last administered on 10/28/18at 12:58; Admin Dose 3 UNIT; Start 10/28/18 at 12:00 Lorazepam (Ativan) 1 mg Q6H PRN IV anxiety; Start 10/28/18 at 15:00 Hydromorphone HCl (Dilaudid) 1 mg Q3H PRN IV SEVERE PAIN LEVEL 7-10 Last administered on 10/28/18at 17:04; Admin Dose 1 MG; Start 10/28/18 at 18:00 Allergies: Coded Allergies: aspirin (Unverified Allergy, Unknown, 10/27/18) ASPIRIN ALLERGY PER PRE-OP ORDER SHEET PER [employer], PT REPORTS VOMITING WITH ASPIRIN 08/15/17 1511 Social History Alcohol Use: none Smoking Status: Never smoker Drug Use: none Exam/Review of Systems Exam Vitals Vital Signs Date Temp Pulse Resp B/P (MAP) Pulse Ox O2 O2 Flow FiO2 Time Delivery Rate 10/28/18 98.1 96 16 117/59 91 14:02 (78) 10/27/18 Nasal 2.0 06:49 Cannula Intake and Output 10/27/18 10/27/18 10/28/18 1515:00 23:00 07:00 IntakeIntake Total 225 ml 360 ml OutputOutput Total 200 ml BalanceBalance 225 ml 160 ml Constitutional: alert, oriented Psych: no complaints Head: normocephalic, atraumatic ENMT: nl external ears & nose Neck: supple, non-tender Respiratory: clear to auscultation, normal air movement Cardiovascular: regular rate and rhythm, nl pulses Gastrointestinal: soft, bowel sounds, tender Extremities: normal pulses Skin: nl turgor Results Result Diagram: 10/28/18 0435 10/28/18 0435 Results 24hrs Laboratory Tests Test 10/28/18 03:55 10/28/18 04:35 10/28/18 07:00 10/28/18 12:57 Stool Occult Blood POSITIVE White Blood Count 10.7 Red Blood Count 4.15 L Hemoglobin 12.5 Hematocrit 37.9 Mean Corpuscular Volume 91.3 Mean Corpuscular 30.1 Hemoglobin Mean Corpuscular 33.0 Hemoglobin Concent Red Cell Distribution 12.0 Width Platelet Count 184 Mean Platelet Volume 10.1 Immature Granulocytes % 0.400 Neutrophils % 91.0 H Lymphocytes % 6.2 L Monocytes % 2.3 Eosinophils % 0.0 Basophils % 0.1 Nucleated Red Blood 0.0 Cells % Immature Granulocytes # 0.040 H Neutrophils # 9.8 H Lymphocytes # 0.7 L Monocytes # 0.3 Eosinophils # 0.0 Basophils # 0.0 Nucleated Red Blood 0.0 Cells # Sodium Level 141 Potassium Level 4.6 Chloride Level 109 Carbon Dioxide Level 24 Anion Gap 8 Blood Urea Nitrogen 16 Creatinine 0.49 Est Glomerular Filtrat > 60 Rate mL/min Glucose Level 178 Hemoglobin A1c 6.6 H Calcium Level 8.4 Magnesium Level 2.0 Total Bilirubin 0.4 Direct Bilirubin 0.00 Indirect Bilirubin 0.4 Aspartate Amino 24 Transf (AST/SGOT) Alanine 22 Aminotransferase (ALT/SG PT) Alkaline Phosphatase 43 Total Protein 6.0 #L Albumin 3.6 # Globulin 2.40 Albumin/Globulin Ratio 1.50 Triglycerides Level 89 Cholesterol Level 179 LDL Cholesterol, 112 Calculated HDL Cholesterol 49 Cholesterol/HDL Ratio 3.6 Thyroid Stimulating 0.335 L Hormone (TSH) Lactic Acid Level 1.1 Bedside Glucose 255 H Medications Medication Current Medications Sodium Chloride 1,000 ml @ 75 mls/hr [id number] IV Last administered on 10/28/18at 05:52; Admin Dose 75 MLS/HR; Start 10/27/18 at 06:58 IV Flush (NS 3 ml) 3 ml PER PROTOCOL IV ; Start 10/27/18 at 07:00 Ondansetron HCl (Zofran Inj) 4 mg Q6H PRN IV NAUSEA/VOMITING Last administered on 10/27/18at 18:14; Admin Dose 4 MG; Start 10/27/18 at 07:00 Acetaminophen (Tylenol Tab) 650 mg Q6H PRN PO .PAIN 1-3 OR TEMP; Start 10/27/18 at 07:00 Docusate Sodium (Colace) 100 mg Q12H PRN PO .CONSTIPATION; Start 10/27/18 at 07:00 Bisacodyl (Dulcolax) 5 mg DAILY PRN PO .CONSTIPATION; Start 10/27/18 at 07:00 Gabapentin (Neurontin) 300 mg TID PO Last administered on 10/28/18 13:01; Admin Dose 300 MG; Start 10/27/18 at 09:00 Levothyroxine Sodium (Synthroid) 50 mcg BEFORE BREAKFAST PO Last administered on 10/28/18 06:21; Admin Dose 50 MCG; Start 10/28/18 at 07:00 Prednisone (Prednisone) 5 mg DAILY PO Last administered on 10/28/18 09:31; Admin Dose 5 MG; Start 10/27/18 at 09:00; Status Hold Trazodone HCl (Desyrel) 100 mg QHS PO Last administered on 10/27/18 20:23; Admin Dose 100 MG; Start 10/27/18 at 21:00 Hyoscyamine (Levsin (Sl)) 0.25 mg Q4H PRN PO abdominal cramps Last administered on 10/28/18 16:09; Admin Dose 0.25 MG; Start 10/27/18 at 17:00 Methylprednisolone Sodium Succinate (Solu-Medrol) 20 mg Q8 IV Last administered on 10/28/18 13:01; Admin Dose 20 MG; Start 10/27/18 at 22:00; Stop 10/28/18 at 21:59 Pantoprazole (Protonix Iv) 40 mg BID IV ; Start 10/28/18 at 21:00 Insulin Aspart (Novolog Insulin Pen) NOVOLOG *MILD* ALGORITHM WITH MEALS BEDTIME SC Last administered on 10/28/18 12:58; Admin Dose 3 UNIT; Start 10/28/18 at 12:00 Lorazepam (Ativan) 1 mg Q6H PRN IV anxiety; Start 10/28/18 at 15:00 Hydromorphone HCl (Dilaudid) 1 mg Q3H PRN IV SEVERE PAIN LEVEL 7-10 Last admi nistered on 10/28/18 17:04; Admin Dose 1 MG; Start 10/28/18 at 18:00 [facility] October 28, 2018 17:44
[2018-10-28] MEDS ORDERED: BISACODYL (EC) 5 MG TAB PO ONE (18:00)
[2018-10-28] MEDS ORDERED: POLYETHYLENE GLYCOL 3350 119 GM POWDER PO ONE (18:30)
[2018-10-28 19:58] VITALS: BP 140/65; PULSE 80; RESP 18
[2018-10-28] MEDS: PANTOPRAZOLE 40 MG INJ IV SCH (20:07)
[2018-10-28] MEDS: traZODone 100 MG TAB PO SCH (20:09)
[2018-10-29] VITALS (8 sets, daily range): BP systolic 133–171; BP diastolic 61–75; PULSE 58–89; RESP 13–19
[2018-10-29] MEDS: HYDROmorphONE 1 MG/ML SYG IV PRN ×6 (00:07→18:36)
[2018-10-29] MEDS ORDERED: INSULIN ASPART [NOVOLOG] 3 ML PEN SC SCH (01:00)
[2018-10-29] MEDS: SOD CHLORIDE 0.9% 1,000 ML IV SCH ×3 (01:16→16:43)
[2018-10-29] MEDS: Insulin NOVOLOG SS MILD Algorithm (NPO/TPN/ENTERAL FEEDS) SC SCH ×5 (05:00→21:20)
[2018-10-29] MEDS ORDERED: POLYETHYLENE GLYCOL 3350 119 GM POWDER PO ONE (06:00)
[2018-10-29] MEDS: LEVOTHYROXINE 50 MCG TAB PO SCH (06:17)
[2018-10-29] MEDS ORDERED: BISACODYL (EC) 5 MG TAB PO ONE (08:00)
[2018-10-29] MEDS: GABAPENTIN 300 MG CAP PO SCH ×3 (08:02→21:18)
[2018-10-29] MEDS: PANTOPRAZOLE 40 MG INJ IV SCH ×2 (08:03→21:18)
--- NOTE | 2018-10-29 14:33 | PREAC ---
Date/Time of Note Date/Time of Note DATE: 10/29/18 TIME: 14:29 Anesthesia Eval and Record Evaluation Time Pre-Procedure Interview DATE: 10/29/18 TIME: 14:29 Age 63 Sex female NPO: 8 hrs Preoperative diagnosis hematochezia Planned procedure colonoscopy Past Medical History Past Medical History: Includes (psoriasis, hx colon polyps) Endo: Diabetes, Hypothyroid Heme: Anemia Surgery & Anesthesia Issues No known issue (hysterectomy, hernia sx) Meds Anticoagulation: No Beta Tania within 24 hr: Yes Reported Medications Sulfasalazine* (Sulfazine*) 500 Mg Tablet, 1500 MG PO BID, TAB 10/27/18 Trazodone Hcl* (Trazodone Hcl*) 100 Mg Tablet, 100 MG PO QHS, #30 TAB 10/27/18 Sucralfate* (Carafate*) 1 Gm Tab, 1 GM PO AC MEALS AND BEDTIME, TAB 10/27/18 Propranolol Hcl* (Propranolol Hcl*) 10 Mg Tablet, 10 MG PO BID, TAB 10/27/18 Prednisone* (Prednisone*) 5 Mg Tab, 5 MG PO DAILY, TAB 10/27/18 Metformin Hcl* (Metformin Hcl*) 500 Mg Tablet, 500 MG PO WITH BREAKFAST DINNE, #60 TAB 10/27/18 Levothyroxine Sodium* (Levoxyl*) 50 Mcg Tablet, 50 MCG PO BEFORE BREAKFAST, #30 TAB 10/27/18 Hydroxychloroquine Sulfate* (Plaquenil*) 200 Mg Tab, 200 MG PO BID, TAB 10/27/18 Gabapentin* (Gabapentin*) 300 Mg Capsule, 300 MG PO TID, #90 CAP 10/27/18 Calcium Carbonate/Vitamin D3 (Oysco 500+D Tablet) 1 Each Tablet, 1 EACH PO BID, TAB 10/27/18 Discontinued Reported Medications Hydroxychloroquine Sulfate* (Hydroxychloroquine Sulfate*) 200 Mg Tablet, 200 MG PO BID, TAB 08/21/17 Sulfasalazine* (Sulfazine*) 500 Mg Tablet, 500 MG PO DAILY, TAB 08/21/17 Gemfibrozil* (Gemfibrozil*) 600 Mg Tablet, 600 MG PO BID, TAB 08/21/17 Sitagliptin* (Januvia*) 100 Mg Tablet, 50 MG PO DAILY, #30 TAB 08/21/17 Folic Acid* (Folic Acid*) 1 Mg Tablet, 1 MG PO DAILY, TAB 08/21/17 Sucralfate* (Carafate*) 1 Gm Tab, 1 GM PO AC MEALS , TAB 08/15/17 Propranolol Hcl* (Propranolol Hcl*) 10 Mg Tablet, 10 MG PO BID, TAB 08/15/17 Prednisone* (Prednisone*) 5 Mg Tab, 5 MG PO DAILY, TAB 08/15/17 Calcium Carbonate ([id number]) 500 Mg Tablet, 500 MG PO BID, TAB 08/15/17 Metformin* (Glucophage*) 500 Mg Tab, 500 MG PO WITH MEALS, #90 TAB 08/15/17 Levothyroxine Sodium* (Levothyroxine Sodium*) 50 Mcg Tablet, 50 MCG PO BEFORE BREAKFAST, #30 TAB 08/15/17 Gabapentin* (Gabapentin*) 300 Mg Capsule, 300 MG PO TID, #60 CAP 08/15/17 Amitriptyline Hcl* (Amitriptyline Hcl*) 10 Mg Tablet, 10 MG PO BID, #30 TAB 08/15/17 Discontinued Scripts Ibuprofen* (Motrin*) 600 Mg Tab, 600 MG PO Q8 for PAIN AND/OR INFLAMMATION, #30 TAB Prov:RUTHIE QUEVEDO MD 08/21/17 Current Medications Sodium Chloride 1,000 ml @ 75 mls/hr [id number] IV Last administered on 10/29/18at 01:16; Admin Dose 75 MLS/HR; Start 10/27/18 at 06:58 IV Flush (NS 3 ml) 3 ml PER PROTOCOL IV ; Start 10/27/18 at 07:00 Ondansetron HCl (Zofran Inj) 4 mg Q6H PRN IV NAUSEA/VOMITING Last administered on 10/27/18at 18:14; Admin Dose 4 MG; Start 10/27/18 at 07:00 Acetaminophen (Tylenol Tab) 650 mg Q6H PRN PO .PAIN 1-3 OR TEMP; Start 10/27/18 at 07:00 Docusate Sodium (Colace) 100 mg Q12H PRN PO .CONSTIPATION; Start 10/27/18 at 07:00 Bisacodyl (Dulcolax) 5 mg DAILY PRN PO .CONSTIPATION; Start 10/27/18 at 07:00 Gabapentin (Neurontin) 300 mg TID PO Last administered on 10/29/18at 12:08; Admin Dose 300 MG; Start 10/27/18 at 09:00 Levothyroxine Sodium (Synthroid) 50 mcg BEFORE BREAKFAST PO Last administered on 10/29/18 06:17; Admin Dose 50 MCG; Start 10/28/18 at 07:00 Prednisone (Prednisone) 5 mg DAILY PO Last administered on 10/28/18 09:31; Admin Dose 5 MG; Start 10/27/18 at 09:00; Status Hold Trazodone HCl (Desyrel) 100 mg QHS PO Last administered on 10/28/18 20:09; Admin Dose 100 MG; Start 10/27/18 at 21:00 Hyoscyamine (Levsin (Sl)) 0.25 mg Q4H PRN PO abdominal cramps Last administered on 10/28/18 16:09; Admin Dose 0.25 MG; Start 10/27/18 at 17:00 Pantoprazole (Protonix Iv) 40 mg BID IV Last administered on 10/29/18 08:03; Admin Dose 40 MG; Start 10/28/18 at 21:00 Lorazepam (Ativan) 1 mg Q6H PRN IV anxiety; Start 10/28/18 at 15:00 Hydromorphone HCl (Dilaudid) 1 mg Q3H PRN IV SEVERE PAIN LEVEL 7-10 Last administered on 10/29/18at 11:03; Admin Dose 1 MG; Start 10/28/18 at 18:00 Insulin Aspart (Novolog Insulin Pen) (Adult SC Insulin - Mild Algorithm)... Q4 SC ; Start 10/29/18 at 05:00 Meds reviewed: Yes Allergies Coded Allergies: aspirin (Unverified Allergy, Unknown, 10/27/18) ASPIRIN ALLERGY PER PRE-OP ORDER SHEET PER [employer] SHAINA, PT REPORTS VOMITING WITH ASPIRIN 08/15/17 1511 Allergies Reviewed: Yes Labs/Studies Labs Reviewed: Reviewed by anesthesiologist Result Diagram: 10/29/1820 10/28/18 0435 Laboratory Tests 10/29/18 05:20 test: N/A Studies: ECG (sb otherwise nml), CXR Pre-procedure Exam Last vitals Vital Signs Date Temp Pulse Resp B/P (MAP) Pulse Ox O2 O2 Flow FiO2 Time Delivery Rate 10/29/18 97.4 73 17 142/63 99 07:52 (89) 4/30/19 Nasal 2.0 06:49 Cannula Airway: Adequate mouth opening, Adequate thyromental dist Mallampati: Mallampati II Teeth: Normal Lung: Normal Heart: Normal ASA Physical Status ASA physical status: 2 Emergency: None Planned Anesthetic General/MAC: MAC Pre-operative Attestations Prior to commencing anesthesia and surgery, the patient was re-evaluated, there was verification of: *The patient's identity *The results of appropriate recent lab work and preoperative vital signs *The above evaluation not changing prior to induction *Anesthetic plan, risk benefits, alternative and complications discussed with patient/family; questions answered; patient/family understands, accepts and wishes to proceed. EZEQUIEL NOEL October 29, 2018 14:33
[2018-10-29] MEDS ORDERED: PROPOFOL 40 ML ONE (15:50)
[2018-10-29] MEDS ORDERED: LIDOCAINE 2% (SDV) 5 ML INJ ONE (15:50)
--- NOTE | 2018-10-29 15:58 | PN ---
Date/Time of Note Date/Time of Note DATE: 10/29/18 TIME: 15:53 Assessment/Plan VTE Prophylaxis Risk score (from [facility])>0 risk: 3 SCD applied (from [facility]): Yes Pharmacological prophylaxis: NA/contraindicated Pharm contraindication: bleeding, surgical contra Lines/Catheters IV Catheter Type (from [facility] Peripheral IV Urinary Cath still in place: No Assessment/Plan Assessment/Plan 1. Acute lower GI bleeding- resolved - Plans for colonoscopy today - GI consultation appreciated - CT scan results noted - PPI on board 2. Acute enteritis - pain control and supportive care 3. Diabetes mellitus - A1c noted - ISS and accuchecks 4. Arthritis/psoriasis - will hold Prednisone in setting of GI bleed 5. Hypothyroidism - continue levothyroxine 6. Anxiety - stable 7. Disposition - plans for colonoscopy today and further plan of care based on findings Result Diagram: 10/29/18 0520 10/28/18 0435 Results 24hrs Laboratory Tests Test 10/28/18 17:38 10/28/18 20:16 10/29/18 01:15 10/29/18 05:00 Bedside Glucose 221 H 186 159 118 Test 10/29/18 05:20 10/29/18 08:07 10/29/18 12:07 10/29/18 15:36 White Blood Count 13.4 #H Red Blood Count 3.50 L Hemoglobin 10.5 L Hematocrit 32.0 L Mean Corpuscular Volume 91.4 Mean Corpuscular 30.0 Hemoglobin Mean Corpuscular 32.8 Hemoglobin Concent Red Cell Distribution 12.3 Width Platelet Count 188 Mean Platelet Volume 10.1 Immature Granulocytes % 0.500 H Neutrophils % 71.2 Lymphocytes % 20.6 Monocytes % 7.2 Eosinophils % 0.4 Basophils % 0.1 Nucleated Red Blood 0.0 Cells % Immature Granulocytes # 0.070 H Neutrophils # 9.6 H Lymphocytes # 2.8 Monocytes # 1.0 H Eosinophils # 0.1 Basophils # 0.0 Nucleated Red Blood 0.0 Cells # Bedside Glucose 125 121 99 Subjective 24 Hr Interval Summary Free Text/Dictation Patient still with pain in abdominal area but denies any further GI bleeding episodes. Exam/Review of Systems Exam Vitals Vital Signs Date Temp Pulse Resp B/P (MAP) Pulse Ox O2 O2 Flow FiO2 Time Delivery Rate 10/29/18 98.7 74 16 156/67 94 Room Air 15:43 (96) 10/27/18 2.0 06:49 Intake and Output 10/28/18 10/28/18 10/29/18 1515:00 23:00 07:00 IntakeIntake Total 1040 ml 520 ml 1300 ml BalanceBalance 1040 ml 520 ml 1300 ml Exam General: distress secondary to pain. answering questions appropriately Chest: Nontender Lungs: Clear to auscultation bilaterally no crackles rales or wheezing Heart: Normal S1-S2, Regular rhythm and rate. No murmur, S3, or S4 Abdomen: Soft , mildly tender LLQ, nondistended , bowel sounds are present. No guarding no rebound tenderness Extremities: Normal to inspection, no edema no cyanosis Results Results 24hrs Laboratory Tests Test 10/28/18 17:38 10/28/18 20:16 10/29/18 01:15 10/29/18 05:00 Bedside Glucose 221 H 186 159 118 Test 10/29/18 05:20 10/29/18 08:07 10/29/18 12:07 10/29/18 15:36 White Blood Count 13.4 #H Red Blood Count 3.50 L Hemoglobin 10.5 L Hematocrit 32.0 L Mean Corpuscular Volume 91.4 Mean Corpuscular 30.0 Hemoglobin Mean Corpuscular 32.8 Hemoglobin Concent Red Cell Distribution 12.3 Width Platelet Count 188 Mean Platelet Volume 10.1 Immature Granulocytes % 0.500 H Neutrophils % 71.2 Lymphocytes % 20.6 Monocytes % 7.2 Eosinophils % 0.4 Basophils % 0.1 Nucleated Red Blood 0.0 Cells % Immature Granulocytes # 0.070 H Neutrophils # 9.6 H Lymphocytes # 2.8 Monocytes # 1.0 H Eosinophils # 0.1 Basophils # 0.0 Nucleated Red Blood 0.0 Cells # Bedside Glucose 125 121 99 Medications Medication Current Medications Sodium Chloride 1,000 ml @ 75 mls/hr [id number] IV Last administered on 10/29/18at 01:16; Admin Dose 75 MLS/HR; Start 10/27/18 at 06:58 IV Flush (NS 3 ml) 3 ml PER PROTOCOL IV ; Start 10/27/18 at 07:00 Ondansetron HCl (Zofran Inj) 4 mg Q6H PRN IV NAUSEA/VOMITING Last administered on 10/27/18 18:14; Admin Dose 4 MG; Start 10/27/18 at 07:00 Acetaminophen (Tylenol Tab) 650 mg Q6H PRN PO .PAIN 1-3 OR TEMP; Start 10/27/18 at 07:00 Docusate Sodium (Colace) 100 mg Q12H PRN PO .CONSTIPATION; Start 10/27/18 at 07:00 Bisacodyl (Dulcolax) 5 mg DAILY PRN PO .CONSTIPATION; Start 10/27/18 at 07:00 Gabapentin (Neurontin) 300 mg TID PO Last administered on 10/29/18 12:08; Admin Dose 300 MG; Start 10/27/18 at 09:00 Levothyroxine Sodium (Synthroid) 50 mcg BEFORE BREAKFAST PO Last administered on 10/29/18 06:17; Admin Dose 50 MCG; Start 10/28/18 at 07:00 Prednisone (Prednisone) 5 mg DAILY PO Last administered on 10/28/18 09:31; Admi n Dose 5 MG; Start 10/27/18 at 09:00; Status Hold Trazodone HCl (Desyrel) 100 mg QHS PO Last administered on 10/28/18 20:09; Admin Dose 100 MG; Start 10/27/18 at 21:00 Hyoscyamine (Levsin (Sl)) 0.25 mg Q4H PRN PO abdominal cramps Last administered on 10/28/18 16:09; Admin Dose 0.25 MG; Start 10/27/18 at 17:00 Pantoprazole (Protonix Iv) 40 mg BID IV Last administered on 10/29/18 08:03; Admin Dose 40 MG; Start 10/28/18 at 21:00 Lorazepam (Ativan) 1 mg Q6H PRN IV anxiety; Start 10/28/18 at 15:00 Hydromorphone HCl (Dilaudid) 1 mg Q3H PRN IV SEVERE PAIN LEVEL 7-10 Last administered on 10/29/18 15:09; Admin Dose 1 MG; Start 10/28/18 at 18:00 Insulin Aspart (Novolog Insulin Pen) (Adult SC Insulin - Mild Algorithm)... Q4 SC ; Start 10/29/18 at 05:00 RODNEY ATKINSON MD October 29, 2018 15:58
--- NOTE | 2018-10-29 16:12 | HPN ---
Date/Time of Note Date/Time of Note DATE: 10/29/18 TIME: 16:12 Interval H&P Admission Note Pt. seen H&P reviewed: No system changes KEON PATEL October 29, 2018 16:12
[2018-10-29] MEDS ORDERED: hydrALAzine 20 MG INJ IV PRN (17:30)
[2018-10-29] MEDS: traZODone 100 MG TAB PO SCH (21:18)
[2018-10-30] MEDS: HYDROmorphONE 1 MG/ML SYG IV PRN ×4 (00:07→19:10)
[2018-10-30 02:00] VITALS: BP 123/58; PULSE 68; RESP 18
[2018-10-30] MEDS: ACCU-CHEK XX SCH (02:00)
[2018-10-30] MEDS: SOD CHLORIDE 0.9% 1,000 ML IV SCH ×2 (06:16→14:58)
[2018-10-30] MEDS: LEVOTHYROXINE 50 MCG TAB PO SCH (06:16)
[2018-10-30] MEDS ORDERED: INSULIN ASPART [NOVOLOG] 3 ML PEN SC SCH (07:00)
[2018-10-30 07:47] VITALS: BP 144/74; PULSE 63; RESP 18
[2018-10-30] MEDS: PANTOPRAZOLE 40 MG INJ IV SCH ×2 (08:47→20:54)
[2018-10-30] MEDS: GABAPENTIN 300 MG CAP PO SCH ×3 (08:48→20:54)
[2018-10-30] MEDS: HYOSCYAMINE 0.125 MG SUBL TAB PO PRN (08:53)
[2018-10-30] MEDS: INSULIN ASPART [NOVOLOG] 3 ML PEN SC SCH ×4 (08:59→20:55)
[2018-10-30] MEDS ORDERED: HYDROCODONE/APAP (10/325) TAB PO PRN (09:00)
[2018-10-30] MEDS ORDERED: morphine 2 MG INJ IV PRN (10:00)
[2018-10-30] MEDS: CIPROFLOXACIN 400MG/D5W 200 ML IVPB SCH ×2 (13:21→20:54)
[2018-10-30] MEDS: HYDROCODONE/APAP (5/325) TAB PO PRN (13:29)
[2018-10-30 13:44] VITALS: BP 195/79; PULSE 66; RESP 18
--- NOTE | 2018-10-30 14:05 | PN ---
Date/Time of Note Date/Time of Note DATE: 10/30/18 TIME: 14:00 Assessment/Plan VTE Prophylaxis Risk score (from Ns)>0 risk: 3 SCD applied (from Ns): Yes Pharmacological prophylaxis: NA/contraindicated Pharm contraindication: bleeding Lines/Catheters IV Catheter Type (from Nrsg): Peripheral IV Urinary Cath still in place: No Assessment/Plan Assessment/Plan 1. Acute lower GI bleeding- resolved - Gi consultation appreciated and colonoscopy results from 10/29 noted with internal hemorrhoids and diverticulosis - CT scan results noted - PPI on board 2. Severe pain secondary to ?acute enteritis - noted on CT scan - will start antibiotics given pain control and supportive care not effective 3. Diabetes mellitus - A1c noted - ISS and accuchecks 4. Arthritis/psoriasis - continue home prednisone dose 5. Hypothyroidism - continue levothyroxine 6. Anxiety - stable 7. Disposition - Will start antibiotics and monitor for improvement in abdominal pain Result Diagram: 10/29/18 0520 10/28/18 0435 Results 24hrs Laboratory Tests Test 10/29/18 15:36 10/29/18 17:30 10/29/18 21:16 10/30/18 02:07 Bedside Glucose 99 117 156 139 Test 10/30/18 08:46 10/30/18 13:18 Bedside Glucose 150 150 Subjective 24 Hr Interval Summary Free Text/Dictation Patient complaining of severe abdominal pain this am that she states starts in LLQ and travels up to epigastric area. Discussed negative findings on imaging studies and colonoscopy. Denies any blood in stool, nausea or vomiting, constipation or diarrhea. Exam/Review of Systems Exam Vitals Vital Signs Date Temp Pulse Resp B/P (MAP) Pulse Ox O2 O2 Flow FiO2 Time Delivery Rate 10/30/18 98.3 66 18 195/79 98 Room Air 13:44 (117) 10/27/18 2.0 06:49 Intake and Output 10/29/18 10/29/18 10/30/18 1515:00 23:00 07:00 IntakeIntake Total 1220 ml 1480 ml BalanceBalance 1220 ml 1480 ml Exam General: resting comfortably. no acute distress Chest: Nontender Lungs: Clear to auscultation bilaterally no crackles rales or wheezing Heart: Normal S1-S2, Regular rhythm and rate. No murmur, S3, or S4 Abdomen: Soft , mildly tender LLQ, nondistended , bowel sounds are present. No guarding no rebound tenderness Extremities: Normal to inspection, no edema no cyanosis Results Results 24hrs Laboratory Tests Test 10/29/18 15:36 10/29/18 17:30 10/29/18 21:16 10/30/18 02:07 Bedside Glucose 99 117 156 139 Test 10/30/18 08:46 10/30/18 13:18 Bedside Glucose 150 150 Medications Medication Current Medications Sodium Chloride 1,000 ml @ 75 mls/hr [id number] IV Last administered on 10/30/18 06:16; Admin Dose 75 MLS/HR; Start 10/27/18 at 06:58 IV Flush (NS 3 ml) 3 ml PER PROTOCOL IV ; Start 10/27/18 at 07:00 Ondansetron HCl (Zofran Inj) 4 mg Q6H PRN IV NAUSEA/VOMITING Last administered on 10/27/18at 18:14; Admin Dose 4 MG; Start 10/27/18 at 07:00 Acetaminophen (Tylenol Tab) 650 mg Q6H PRN PO .PAIN 1-3 OR TEMP; Start 10/27/18 at 07:00 Docusate Sodium (Colace) 100 mg Q12H PRN PO .CONSTIPATION; Start 10/27/18 at 07:00 Bisacodyl (Dulcolax) 5 mg DAILY PRN PO .CONSTIPATION; Start 10/27/18 at 07:00 Gabapentin (Neurontin) 300 mg TID PO Last administered on 10/30/18 13:21; Admin Dose 300 MG; Start 10/27/18 at 09:00 Levothyroxine Sodium (Synthroid) 50 mcg BEFORE BREAKFAST PO Last administered on 10/30/18 06:16; Admin Dose 50 MCG; Start 10/28/18 at 07:00 Prednisone (Prednisone) 5 mg DAILY PO Last administered on 10/28/18 09:31; Admin Dose 5 MG; Start 10/27/18 at 09:00; Status Hold Trazodone HCl (Desyrel) 100 mg QHS PO Last administered on 10/29/18 21:18; Admin Dose 100 MG; Start 10/27/18 at 21:00 Hyoscyamine (Levsin (Sl)) 0.25 mg Q4H PRN PO abdominal cramps Last administered on 10/30/18 08:53; Admin Dose 0.25 MG; Start 10/27/18 at 17:00 Pantoprazole (Protonix Iv) 40 mg BID IV Last administered on 10/30/18 08:47; Admin Dose 40 MG; Start 10/28/18 at 21:00 Lorazepam (Ativan) 1 mg Q6H PRN IV anxiety; Start 10/28/18 at 15:00 Hydromorphone HCl (Dilaudid) 1 mg Q3H PRN IV SEVERE PAIN LEVEL 7-10 Last administered on 10/30/18 10:27; Admin Dose 1 MG; Start 10/28/18 at 18:00 Hydralazine HCl (Apresoline) 10 mg Q4H PRN IV SBP >170 Last administered on 10/29/18 17:29; Admin Dose 10 MG; Start 10/29/18 at 17:30 Insulin Aspart (Novolog Insulin Pen) NOVOLOG *MILD* ALGORITHM WITH MEALS BEDTIME SC Last administered on 10/30/18 13:28; Admin Dose 1 UNIT; Start 10/30/18 at 08:00 Diagnostic Test (Pha) (Accu-Chek) 1 ea 0200 XX ; Start 10/30/18 at 02:00 Acetaminophen/ Hydrocodone Bitart ([place] (5/325)) 1 tab Q4H PRN PO MODERATE PAIN LEVEL 4-6 Last administered on 10/30/18 13:29; Admin Dose 1 TAB; Start 10/30/18 at 09:00 Morphine Sulfate (morphine) 2 mg Q4H PRN IV MODERATE PAIN LEVEL 4-6; Start 10/30/18 at 10:00 Ciprofloxacin/ Dextrose 200 ml @ 200 mls/hr Q12 IVPB Last administered on 10/30/18 13:21; Admin Dose 200 MLS/HR; Start 10/30/18 at 13:00 Metronidazole 100 ml @ 100 mls/hr Q8 IVPB ; Start 10/30/18 at 14:00 RODNEY ATKINSON MD October 30, 2018 14:05
[2018-10-30] MEDS: ONDANSETRON 4 MG INJ IV PRN (14:18)
[2018-10-30] MEDS: metroNIDAZOLE 500 MG/NS (PMX) 100 ML IVPB SCH ×2 (15:34→22:21)
[2018-10-30 20:00] VITALS: BP 118/58; PULSE 91; RESP 19
[2018-10-30] MEDS: traZODone 100 MG TAB PO SCH (20:54)
[2018-10-31] MEDS: ACCU-CHEK XX SCH (01:14)
[2018-10-31 02:00] VITALS: BP 166/74; PULSE 68; RESP 18
[2018-10-31] MEDS: SOD CHLORIDE 0.9% 1,000 ML IV SCH ×3 (02:13→23:57)
[2018-10-31] MEDS: ONDANSETRON 4 MG INJ IV PRN ×2 (02:49→08:26)
[2018-10-31] MEDS: HYOSCYAMINE 0.125 MG SUBL TAB PO PRN (02:49)
[2018-10-31] MEDS: metroNIDAZOLE 500 MG/NS (PMX) 100 ML IVPB SCH ×3 (05:53→22:33)
[2018-10-31] MEDS: LEVOTHYROXINE 50 MCG TAB PO SCH (06:32)
[2018-10-31] MEDS: GABAPENTIN 300 MG CAP PO SCH ×3 (08:20→21:03)
[2018-10-31] MEDS: HYDROCODONE/APAP (5/325) TAB PO PRN ×3 (08:21→19:24)
[2018-10-31] MEDS: CIPROFLOXACIN 400MG/D5W 200 ML IVPB SCH ×2 (08:22→21:02)
[2018-10-31] MEDS: PANTOPRAZOLE 40 MG INJ IV SCH ×2 (08:22→21:03)
[2018-10-31] MEDS: INSULIN ASPART [NOVOLOG] 3 ML PEN SC SCH ×4 (08:26→21:00)
[2018-10-31 08:46] VITALS: BP 122/81; PULSE 83; RESP 20
[2018-10-31] MEDS: predniSONE 5 MG TAB PO SCH (09:39)
--- NOTE | 2018-10-31 11:39 | PN ---
Date/Time of Note Date/Time of Note DATE: 10/31/18 TIME: 11:37 Assessment/Plan VTE Prophylaxis Risk score (from Ns)>0 risk: 3 SCD applied (from Ns): No SCD contraindicated: low risk/ambulating Pharmacological prophylaxis: NA/contraindicated Pharm contraindication: bleeding Lines/Catheters [facility]from [facility] [place] Urinary Cath still in place: No Assessment/Plan Assessment/Plan 1. Acute lower GI bleeding- resolved - GI consultation appreciated and colonoscopy results from 10/29 noted with internal hemorrhoids and diverticulosis - CT scan results noted - PPI on board 2. Severe pain secondary to ?acute enteritis- improving - still present but slightly improved after started on IV antibiotics - noted on CT scan 3. Diabetes mellitus - A1c noted - ISS and accuchecks 4. Arthritis/psoriasis - continue home prednisone dose 5. Hypothyroidism - continue levothyroxine 6. Anxiety - stable 7. Disposition - Will monitor on IV antibiotics for another 24 hours and if improves tomorrow, will d/c home on PO antibiotics Result Diagram: 10/31/18 0525 10/31/18 0525 Results 24hrs Laboratory Tests Test 10/30/18 13:18 10/30/18 18:29 10/30/18 20:52 10/31/18 05:25 Bedside Glucose 150 142 156 White Blood Count 9.2 # Red Blood Count 3.88 L Hemoglobin 11.7 L Hematocrit 34.2 L Mean Corpuscular Volume 88.1 Mean Corpuscular 30.2 Hemoglobin Mean Corpuscular 34.2 Hemoglobin Concent Red Cell Distribution 11.9 Width Platelet Count 209 Mean Platelet Volume 9.9 Immature Granulocytes % 0.400 Neutrophils % 74.9 Lymphocytes % 17.2 Monocytes % 7.1 Eosinophils % 0.2 Basophils % 0.2 Nucleated Red Blood 0.0 Cells % Immature Granulocytes # 0.040 H Neutrophils # 6.9 Lymphocytes # 1.6 Monocytes # 0.7 Eosinophils # 0.0 Basophils # 0.0 Nucleated Red Blood 0.0 Cells # Sodium Level 138 Potassium Level 3.9 Chloride Level 106 Carbon Dioxide Level 25 Anion Gap 7 Blood Urea Nitrogen 4 L Creatinine 0.39 L Glucose Level 169 Calcium Level 8.4 Phosphorus Level 3.2 Magnesium Level 2.0 Albumin 3.6 Test 10/31/18 08:11 Bedside Glucose 166 Subjective 24 Hr Interval Summary Free Text/Dictation Patient states pain is still present but slightly improved after started on IV antibiotics. Still will poor PO intake and states feels nauseated when she smells food. Exam/Review of Systems Exam Vitals Vital Signs Date Temp Pulse Resp B/P (MAP) Pulse Ox O2 O2 Flow FiO2 Time Delivery Rate 10/31/18 99.0 83 20 122/81 95 08:46 (95) 10/30/18 Room Air 13:44 Intake and Output 10/30/18 10/30/18 10/31/18 1515:00 23:00 07:00 IntakeIntake Total 520 ml 1180 ml 520 ml OutputOutput Total 200 ml BalanceBalance 320 ml 1180 ml 520 ml Exam General: resting comfortably. no acute distress Chest: Nontender Lungs: Clear to auscultation bilaterally no crackles rales or wheezing Heart: Normal S1-S2, Regular rhythm and rate. No murmur, S3, or S4 Abdomen: Soft , mildly tender lower quadrants, nondistended , bowel sounds are present. No guarding no rebound tenderness Extremities: Normal to inspection, no edema no cyanosis Results Results 24hrs Laboratory Tests Test 10/30/18 13:18 10/30/18 18:29 10/30/18 20:52 10/31/18 05:25 Bedside Glucose 150 142 156 White Blood Count 9.2 # Red Blood Count 3.88 L Hemoglobin 11.7 L Hematocrit 34.2 L Mean Corpuscular Volume 88.1 Mean Corpuscular 30.2 Hemoglobin Mean Corpuscular 34.2 Hemoglobin Concent Red Cell Distribution 11.9 Width Platelet Count 209 Mean Platelet Volume 9.9 Immature Granulocytes % 0.400 Neutrophils % 74.9 Lymphocytes % 17.2 Monocytes % 7.1 Eosinophils % 0.2 Basophils % 0.2 Nucleated Red Blood 0.0 Cells % Immature Granulocytes # 0.040 H Neutrophils # 6.9 Lymphocytes # 1.6 Monocytes # 0.7 Eosinophils # 0.0 Basophils # 0.0 Nucleated Red Blood 0.0 Cells # Sodium Level 138 Potassium Level 3.9 Chloride Level 106 Carbon Dioxide Level 25 Anion Gap 7 Blood Urea Nitrogen 4 L Creatinine 0.39 L Glucose Level 169 Calcium Level 8.4 Phosphorus Level 3.2 Magnesium Level 2.0 Albumin 3.6 Test 10/31/18 08:11 Bedside Glucose 166 Medications Medication Current Medications Sodium Chloride 1,000 ml @ 75 mls/hr [id number] IV Last administered on 10/31/18 02:13; Admin Dose 75 MLS/HR; Start 10/27/18 at 06:58 IV Flush (NS 3 ml) 3 ml PER PROTOCOL IV ; Start 10/27/18 at 07:00 Ondansetron HCl (Zofran Inj) 4 mg Q6H PRN IV NAUSEA/VOMITING Last administered on 10/31/18 08:26; Admin Dose 4 MG; Start 10/27/18 at 07:00 Acetaminophen (Tylenol Tab) 650 mg Q6H PRN PO .PAIN 1-3 OR TEMP; Start 10/27/18 at 07:00 Docusate Sodium (Colace) 100 mg Q12H PRN PO .CONSTIPATION; Start 10/27/18 at 07:00 Bisacodyl (Dulcolax) 5 mg DAILY PRN PO .CONSTIPATION; Start 10/27/18 at 07:00 Gabapentin (Neurontin) 300 mg TID PO Last administered on 10/31/18 08:20; Admin Dose 300 MG; Start 10/27/18 at 09:00 Levothyroxine Sodium (Synthroid) 50 mcg BEFORE BREAKFAST PO Last administered on 10/31/18 06:32; Admin Dose 50 MCG; Start 10/28/18 at 07:00 Prednisone (Prednisone) 5 mg DAILY PO Last administered on 10/31/18 09:39; Adm in Dose 5 MG; Start 10/27/18 at 09:00 Trazodone HCl (Desyrel) 100 mg QHS PO Last administered on 10/30/18 20:54; Admin Dose 100 MG; Start 10/27/18 at 21:00 Hyoscyamine (Levsin (Sl)) 0.25 mg Q4H PRN PO abdominal cramps Last administered on 10/31/18 02:49; Admin Dose 0.25 MG; Start 10/27/18 at 17:00 Pantoprazole (Protonix Iv) 40 mg BID IV Last administered on 10/31/18 08:22; Admin Dose 40 MG; Start 10/28/18 at 21:00 Lorazepam (Ativan) 1 mg Q6H PRN IV anxiety Last administered on 10/30/18 14:18; Admin Dose 1 MG; Start 10/28/18 at 15:00 Hydromorphone HCl (Dilaudid) 1 mg Q3H PRN IV SEVERE PAIN LEVEL 7-10 Last administered on 10/30/18 19:10; Admin Dose 1 MG; Start 10/28/18 at 18:00 Hydralazine HCl (Apresoline) 10 mg Q4H PRN IV SBP >170 Last administered on 10/29/18 17:29; Admin Dose 10 MG; Start 10/29/18 at 17:30 Insulin Aspart (Novolog Insulin Pen) NOVOLOG *MILD* ALGORITHM WITH MEALS BEDTI ME SC Last administered on 10/31/18 08:26; Admin Dose 1 UNIT; Start 10/30/18 at 08:00 Diagnostic Test (Pha) (Accu-Chek) 1 ea 0200 XX ; Start 10/30/18 at 02:00 Acetaminophen/ Hydrocodone Bitart ([place] (5/325)) 1 tab Q4H PRN PO MODERATE PAIN LEVEL 4-6 Last administered on 10/31/18 08:21; Admin Dose 1 TAB; Start 10/30/18 at 09:00 Morphine Sulfate (morphine) 2 mg Q4H PRN IV MODERATE PAIN LEVEL 4-6; Start 10/30/18 at 10:00 Ciprofloxacin/ Dextrose 200 ml @ 200 mls/hr Q12 IVPB Last administered on 10/31 08:22; Admin Dose 200 MLS/HR; Start 10/30/18 at 13:00 Metronidazole 100 ml @ 100 mls/hr Q8 IVPB Last administered on 10/31/18 05:53; Admin Dose 100 MLS/HR; Start 10/30/18 at 14:00 RODNEY ATKINSON MD October 31, 2018 11:39
[2018-10-31 15:56] VITALS: BP 166/69; PULSE 86; RESP 22
[2018-10-31] MEDS ORDERED: DEXTROSE 50% 50 ML SYRINGE IV PRN ×2 (16:30)
[2018-10-31] MEDS ORDERED: GLUCOSE GEL 15 GRAM TUBE PO PRN ×2 (16:30)
[2018-10-31] MEDS ORDERED: GLUCAGON 1 MG INJ IM PRN (16:30)
[2018-10-31] MEDS ORDERED: GLUCOSE GEL 15 GRAM TUBE BUCCAL PRN (16:30)
[2018-10-31 19:56] VITALS: BP 146/65; PULSE 67; RESP 18
[2018-10-31] MEDS: traZODone 100 MG TAB PO SCH (21:03)
[2018-11-01] MEDS: ACCU-CHEK XX SCH (02:00)
[2018-11-01 02:17] VITALS: BP 146/63; PULSE 60; RESP 18
[2018-11-01] MEDS: SOD CHLORIDE 0.9% 1,000 ML IV SCH (06:00)
[2018-11-01] MEDS: LEVOTHYROXINE 50 MCG TAB PO SCH (06:11)
[2018-11-01] MEDS: metroNIDAZOLE 500 MG/NS (PMX) 100 ML IVPB SCH (06:12)
[2018-11-01 07:49] VITALS: BP 153/72; PULSE 72; RESP 18
[2018-11-01] MEDS: CIPROFLOXACIN 400MG/D5W 200 ML IVPB SCH (08:19)
[2018-11-01] MEDS: PANTOPRAZOLE 40 MG INJ IV SCH (08:19)
[2018-11-01] MEDS: predniSONE 5 MG TAB PO SCH (08:19)
[2018-11-01] MEDS: ONDANSETRON 4 MG INJ IV PRN (08:19)
[2018-11-01] MEDS: GABAPENTIN 300 MG CAP PO SCH ×2 (08:20→12:53)
[2018-11-01] MEDS: INSULIN ASPART [NOVOLOG] 3 ML PEN SC SCH ×2 (08:21→12:53)
--- NOTE | 2018-11-01 12:32 | PN ---
Date/Time of Note Date/Time of Note DATE: 11/01/18 TIME: 12:30 Assessment/Plan VTE Prophylaxis Risk score (from Ns)>0 risk: 3 SCD applied (from Ns): No SCD contraindicated: low risk/ambulating Pharmacological prophylaxis: NA/contraindicated Pharm contraindication: low risk/ambulating Lines/Catheters IV C[facility]ter Type (from [facility]): Peripheral IV Urinary Cath still in place: No Assessment/Plan Assessment/Plan 1. Acute lower GI bleeding- resolved - GI consultation appreciated and colonoscopy results from 10/29 noted with inter nal hemorrhoids and diverticulosis - CT scan results noted - PPI on board 2. Severe pain secondary to ?acute enteritis- resolved - will continue on 7 more day of antibiotics - noted on CT scan 3. Diabetes mellitus - A1c noted - ISS and accuchecks 4. Arthritis/psoriasis - continue home prednisone dose 5. Hypothyroidism - continue levothyroxine 6. Anxiety - stable 7. Disposition - Medically stable for discharge home Result Diagram: 11/01/18 0529 10/31/18 0525 Results 24hrs Laboratory Tests Test 10/31/18 12:33 10/31/18 17:57 10/31/18 21:04 11/01/18 05:29 Bedside Glucose 240 H 223 H 154 White Blood Count 8.4 Red Blood Count 3.94 L Hemoglobin 11.8 L Hematocrit 35.6 L Mean Corpuscular Volume 90.4 Mean Corpuscular 29.9 Hemoglobin Mean Corpuscular 33.1 Hemoglobin Concent Red Cell Distribution 12.4 Width Platelet Count 234 Mean Platelet Volume 9.9 Immature Granulocytes % 0.400 Neutrophils % 51.5 Lymphocytes % 39.3 Monocytes % 6.5 Eosinophils % 1.8 Basophils % 0.5 Nucleated Red Blood 0.0 Cells % Immature Granulocytes # 0.030 Neutrophils # 4.3 Lymphocytes # 3.3 H Monocytes # 0.6 Eosinophils # 0.2 Basophils # 0.0 Nucleated Red Blood 0.0 Cells # Test 11/01/18 08:15 Bedside Glucose 168 Subjective 24 Hr Interval Summary Free Text/Dictation Patient is doing well and tolerating PO intake. No acute overnight events and denies any further pain. Exam/Review of Systems Exam Vitals Vital Signs Date Temp Pulse Resp B/P (MAP) Pulse Ox O2 O2 Flow FiO2 Time Delivery Rate 11/01/18 97.8 72 18 153/72 96 Room Air 07:49 (99) Intake and Output 10/31/18 10/31/18 11/01/18 1515:00 23:00 07:00 IntakeIntake Total 780 ml 2050 ml 1020 ml BalanceBalance 780 ml 2050 ml 1020 ml Exam General: resting comfortably. no acute distress Chest: Nontender Lungs: Clear to auscultation bilaterally no crackles rales or wheezing Heart: Normal S1-S2, Regular rhythm and rate. No murmur, S3, or S4 Abdomen: Soft , nontender, nondistended , bowel sounds are present. No guarding no rebound tenderness Extremities: Normal to inspection, no edema no cyanosis Results Results 24hrs Laboratory Tests Test 10/31/18 12:33 10/31/18 17:57 10/31/18 21:04 11/01/18 05:29 Bedside Glucose 240 H 223 H 154 White Blood Count 8.4 Red Blood Count 3.94 L Hemoglobin 11.8 L Hematocrit 35.6 L Mean Corpuscular Volume 90.4 Mean Corpuscular 29.9 Hemoglobin Mean Corpuscular 33.1 Hemoglobin Concent Red Cell Distribution 12.4 Width Platelet Count 234 Mean Platelet Volume 9.9 Immature Granulocytes % 0.400 Neutrophils % 51.5 Lymphocytes % 39.3 Monocytes % 6.5 Eosinophils % 1.8 Basophils % 0.5 Nucleated Red Blood 0.0 Cells % Immature Granulocytes # 0.030 Neutrophils # 4.3 Lymphocytes # 3.3 H Monocytes # 0.6 Eosinophils # 0.2 Basophils # 0.0 Nucleated Red Blood 0.0 Cells # Test 11/01/18 08:15 Bedside Glucose 168 Medications Medication Current Medications Sodium Chloride 1,000 ml @ 75 mls/hr [id number] IV Last administered on 10/31/18at 23:57; Admin Dose 75 MLS/HR; Start 10/27/18 at 06:58 IV Flush (NS 3 ml) 3 ml PER PROTOCOL IV ; Start 10/27/18 at 07:00 Ondansetron HCl (Zofran Inj) 4 mg Q6H PRN IV NAUSEA/VOMITING Last administered on 11/01/18at 08:19; Admin Dose 4 MG; Start 10/27/18 at 07:00 Acetaminophen (Tylenol Tab) 650 mg Q6H PRN PO .PAIN 1-3 OR TEMP; Start 10/27/18 at 07:00 Docusate Sodium (Colace) 100 mg Q12H PRN PO .CONSTIPATION Last administered on 10/31/18 21:03; Admin Dose 100 MG; Start 10/27/18 at 07:00 Bisacodyl (Dulcolax) 5 mg DAILY PRN PO .CONSTIPATION; Start 10/27/18 at 07:00 Gabapentin (Neurontin) 300 mg TID PO Last administered on 11/01/18 08:20; Admin Dose 300 MG; Start 10/27/18 at 09:00 Levothyroxine Sodium (Synthroid) 50 mcg BEFORE BREAKFAST PO Last administered on 11/01/18 06:11; Admin Dose 50 MCG; Start 10/28/18 at 07:00 Prednisone (Prednisone) 5 mg DAILY PO Last administered on 11/01/18 08:19; Admin Dose 5 MG; Start 10/27/18 at 09:00 Trazodone HCl (Desyrel) 100 mg QHS PO Last administered on 10/31/18 21:03; Admin Dose 100 MG; Start 10/27/18 at 21:00 Hyoscyamine (Levsin (Sl)) 0.25 mg Q4H PRN PO abdominal cramps Last administered on 10/31/18 02:49; Admin Dose 0.25 MG; Start 10/27/18 at 17:00 Pantoprazole (Protonix Iv) 40 mg BID IV Last administered on 11/01/18 08:19; Admin Dose 40 MG; Start 10/28/18 at 21:00 Lorazepam (Ativan) 1 mg Q6H PRN IV anxiety Last administered on 10/30/18 14:18; Admin Dose 1 MG; Start 10/28/18 at 15:00 Hydromorphone HCl (Dilaudid) 1 mg Q3H PRN IV SEVERE PAIN LEVEL 7-10 Last administered on 10/30/18 19:10; Admin Dose 1 MG; Start 10/28/18 at 18:00 Hydralazine HCl (Apresoline) 10 mg Q4H PRN IV SBP >170 Last administered on 10/29/18 17:29; Admin Dose 10 MG; Start 10/29/18 at 17:30 Insulin Aspart (Novolog Insulin Pen) NOVOLOG *MILD* ALGORITHM WITH MEALS BEDTIME SC Last administered on 11/01/18 08:21; Admin Dose 1 UNIT; Start 10/30/18 at 08:00 Diagnostic Test (Pha) (Accu-Chek) 1 ea 0200 XX ; Start 10/30/18 at 02:00 Acetaminophen/ Hydrocodone Bitart ([place] (5/325)) 1 tab Q4H PRN PO MODERATE PAIN LEVEL 4-6 Last administered on 10/31/18 19:24; Admin Dose 1 TAB; Start 10/30/18 at 09:00 Morphine Sulfate (morphine) 2 mg Q4H PRN IV MODERATE PAIN LEVEL 4-6; Start 10/30/18 at 10:00 Ciprofloxacin/ Dextrose 200 ml @ 200 mls/hr Q12 IVPB Last administered on 11/01/18 08:19; Admin Dose 200 MLS/HR; Start 10/30/18 at 13:00 Metronidazole 100 ml @ 100 mls/hr Q8 IVPB Last administered on 11/01/18at 06:12; Admin Dose 100 MLS/HR; Start 10/30/18 at 14:00 Miscellaneous Information 1 ea NOTE XX ; Start 10/31/18 at 16:30 Glucose (Glutose) 15 gm Q15M PRN PO DECREASED GLUCOSE; Start 10/31/18 at 16:30 Glucose (Glutose) 22.5 gm Q15M PRN PO DECREASED GLUCOSE; Start 10/31/18 at 16:30 Dextrose (D50w Syringe) 25 ml Q15M PRN IV DECREASED GLUCOSE; Start 10/31/18 at 16:30 Dextrose (D50w Syringe) 50 ml Q15M PRN IV DECREASED GLUCOSE; Start 10/31/18 at 16:30 Glucagon (Glucagen) 1 mg Q15M PRN IM DECREASED GLUCOSE; Start 10/31/18 at 16:30 Glucose (Glutose) 15 gm Q15M PRN BUCCAL DECREASED GLUCOSE; Start 10/31/18 at 16:30 RODNEY ATKINSON MD November 01, 2018 12:32
[2018-11-01] MEDS ORDERED: METR-122 PO (12:33)
[2018-11-01] MEDS ORDERED: CIPR500T4 PO (12:33)
--- NOTE | 2018-11-01 12:36 | PDOCDIS ---
Discharge Instructions DIAGNOSIS Discharge Diagnosis 1. Acute lower GI bleeding- resolved 2. Severe pain secondary to acute enteritis-resolved 3. Diabetes mellitus 4. Arthritis/psoriasis 5. Hypothyroidism 6. Anxiety CONDITION [id number] Patient Condition: [id number] Stable HOME CARE INSTRUCTIONS: [id number] Diet Instructions: [id number] Low Fat /Cholesterol [id number] Special Diet: Rmfar1v low sugar, low carbohydrate ACTIVITY: [id number] Activity Restrictions: [id number] No Restrictions FOLLOW UP/APPOINTMENTS Follow-up Plan 1. Follow up with your primary care physician in 1-2 weeks 2. Take Cipro twice a day and Flagyl three times a day with the next dose of each with dinner. Continue prescription until completed 3. Make sure to keep well hydrated and take fiber as needed if constipated to prevent any irritation to internal hemorrhoids that were seen during your colonoscopy 4. If experiencing any concerning symptoms, please go to your closest emergency department RONDEY ATKINSON MD November 01, 2018 12:36
[2018-11-01] MEDS ORDERED: metroNIDAZOLE 500 MG TAB PO SCH (14:00)
--- NOTE | 2018-11-01 14:15 | DS ---
Date/Time of Note Date/Time of Note DATE: 11/01/18 TIME: 14:12 Discharge Summary Admission/Discharge Info Admit Date/Time October 29, 2018 at 08:29 Discharge Date/Time 11/01/18 Discharge Diagnosis 1. Acute lower GI bleeding- resolved 2. Severe pain secondary to acute enteritis-resolved 3. Diabetes mellitus 4. Arthritis/psoriasis 5. Hypothyroidism 6. Anxiety Patient Condition: Stable Consults Gi- Dr. Martinez/Laury Procedures 10/30/18- Colonoscopy Hx of Present Illness Chief complaint: Left lower quadrant abdominal pain radiating to the whole abdomen This is a 63-year-old female with a past medical history of multiple abdominal s urgeries and status post multiple hernia repairs who presented to the emergency department with left lower abdomen pain. Patient reports that she started experiencing pain last night of the left lower abdomen that then radiated across to the right side and then up her abdomen into the back. She took some anti-gas pain thinking that this was related to gas however it did not get better. She stated that the pain came in waves every 5 to 15 minutes. As the pain continued to get worse she came into the emergency department. Patient denies any nausea or vomiting. She does report that she had 2 bowel movements yesterday. She denies any fevers. She does report that the pain on the left side is around the area of her previous ventral hernia. Denies any hematochezia or hematuria or hematemesis. Allergies: Aspirin Hospital Course Patient was admitted for workup of abdominal pain and symptomatic care. CT scan revealed acute enteritis and patient was treated with IVF and pain control. She was experiencing bright red blood per rectum with clots and GI was consulted. She under went colonoscopy with findings of internal hemorrhoids and diverticulosis but no active bleeding. Patient was started on IV antibiotics and pain improved as well as PO intake. Patients presenting symptoms improved significantly and on day of discharge, patient physical exam and vitals were optimal. She was discharged home in good condition. Home Meds Active Scripts Metronidazole* (Metronidazole*) 500 Mg Tablet, 500 MG PO Q8 for 7 Days, #21 TAB Prov:RODNEY ATKINSON MD 11/01/18 Ciprofloxacin Hcl* (Ciprofloxacin Hcl*) 500 Mg Tablet, 500 MG PO BID for 7 Days, #14 TAB Prov:RODNEY ATKINSON MD 11/01/18 Reported Medications Sulfasalazine* (Sulfazine*) 500 Mg Tablet, 1500 MG PO BID, TAB 10/27/18 Trazodone Hcl* (Trazodone Hcl*) 100 Mg Tablet, 100 MG PO QHS, #30 TAB 10/27/18 Propranolol Hcl* (Propranolol Hcl*) 10 Mg Tablet, 10 MG PO BID, TAB 10/27/18 Prednisone* (Prednisone*) 5 Mg Tab, 5 MG PO DAILY, TAB 10/27/18 Metformin Hcl* (Metformin Hcl*) 500 Mg Tablet, 500 MG PO WITH BREAKFAST DINNE, #60 TAB 10/27/18 Levothyroxine Sodium* (Levoxyl*) 50 Mcg Tablet, 50 MCG PO BEFORE BREAKFAST, #30 TAB 10/27/18 Hydroxychloroquine Sulfate* (Plaquenil*) 200 Mg Tab, 200 MG PO BID, TAB 10/27/18 Gabapentin* (Gabapentin*) 300 Mg Capsule, 300 MG PO TID, #90 CAP 10/27/18 Calcium Carbonate/Vitamin D3 ([place] 500+D Tablet) 1 Each Tablet, 1 EACH PO BID, TAB 10/27/18 Discontinued Reported Medications Sucralfate* (Carafate*) 1 Gm Tab, 1 GM PO AC MEALS AND BEDTIME, TAB 10/27/18 Hydroxychloroquine Sulfate* (Hydroxychloroquine Sulfate*) 200 Mg Tablet, 200 MG PO BID, TAB 08/21/17 Sulfasalazine* (Sulfazine*) 500 Mg Tablet, 500 MG PO DAILY, TAB 08/21/17 Gemfibrozil* (Gemfibrozil*) 600 Mg Tablet, 600 MG PO BID, TAB 08/21/17 Sitagliptin* (Januvia*) 100 Mg Tablet, 50 MG PO DAILY, #30 TAB 08/21/17 Folic Acid* (Folic Acid*) 1 Mg Tablet, 1 MG PO DAILY, TAB 08/21/17 Sucralfate* (Carafate*) 1 Gm Tab, 1 GM PO AC MEALS , TAB 08/15/17 Propranolol Hcl* (Propranolol Hcl*) 10 Mg Tablet, 10 MG PO BID, TAB 08/15/17 Prednisone* (Prednisone*) 5 Mg Tab, 5 MG PO DAILY, TAB 08/15/17 Calcium Carbonate ([id number]) 500 Mg Tablet, 500 MG PO BID, TAB 08/15/17 Metformin* (Glucophage*) 500 Mg Tab, 500 MG PO WITH MEALS, #90 TAB 08/15/17 Levothyroxine Sodium* (Levothyroxine Sodium*) 50 Mcg Tablet, 50 MCG PO BEFORE BREAKFAST, #30 TAB 08/15/17 Gabapentin* (Gabapentin*) 300 Mg Capsule, 300 MG PO TID, #60 CAP 08/15/17 Amitriptyline Hcl* (Amitriptyline Hcl*) 10 Mg Tablet, 10 MG PO BID, #30 TAB 08/15/17 Discontinued Scripts Ibuprofen* (Motrin*) 600 Mg Tab, 600 MG PO Q8 for PAIN AND/OR INFLAMMATION, #30 TAB Prov:RUTHIE QUEVEDO MD 08/21/17 Follow-up Plan 1. Follow up with your primary care physician in 1-2 weeks 2. Take Cipro twice a day and Flagyl three times a day with the next dose of each with dinner. Continue prescription until completed 3. Make sure to keep well hydrated and take fiber as needed if constipated to p revent any irritation to internal hemorrhoids that were seen during your colonoscopy 4. If experiencing any concerning symptoms, please go to your closest emergency department Primary Care Provider Not On Staff Doctor Time spent on discharge: > 30 minutes Pending Labs Laboratory Tests Test 10/31/18 17:57 10/31/18 21:04 11/01/18 05:29 11/01/18 08:15 Bedside 223 154 168 Glucose mg/dL (70-220) mg/dL (70-220) mg/dL (70-220) White Blood 8.4 Count 10^3/ul (4.8-1 0.8) Red Blood 3.94 Count 10^6/ul (4.20- 5.40) Hemoglobin 11.8 g/dl (12.0-16. 0) Hematocrit 35.6 % (37.0-47.0) Mean 90.4 Corpuscular fl (82.0-101.0 Volume ) Mean 29.9 Corpuscular pg (29.0-33.0) Hemoglobin Mean 33.1 Corpuscular g/dl (32.0-37. Hemoglobin Conc 0) ent Red Cell 12.4 Distribution % (11.5-14.5) Width Platelet Count 234 10^3/UL (140-4 15) Mean Platelet 9.9 Volume fl (7.4-10.4) Immature 0.400 Granulocytes % % (0.001-0.429 ) Neutrophils % 51.5 % (39.0-77.0) Lymphocytes % 39.3 % (15.0-51.0) Monocytes % 6.5 % (0.0-11.0) Eosinophils % 1.8 % (0.0-7.0) Basophils % 0.5 % (0.0-2.0) Nucleated Red 0.0 Blood Cells % /100WBC (0.0-0 .0) Immature 0.030 Granulocytes # 10^3/ul (0.0-0 .031) Neutrophils # 4.3 10^3/ul (1.6-7 .5) Lymphocytes # 3.3 10^3/ul (0.8-2 .9) Monocytes # 0.6 10^3/ul (0.3-0 .9) Eosinophils # 0.2 10^3/ul (0.0-0 .5) Basophils # 0.0 10^3/ul (0.0-0 .1) Nucleated Red 0.0 Blood Cells # 10^3/ul (0.0-0 .0) Test 11/01/18 12:44 Bedside 176 Glucose mg/dL (70-220) RODNEY ATKINSON MD November 01, 2018 14:15
[2018-11-01 14:31] VITALS: BP 131/64; PULSE 63; RESP 18
== END 2018-11-01 15:25 | disposition home or self-care (01) | DRG 391 ==
LOC: E/R 02:10 → 2NE 06:02 → OBSVTOIN 10-29 08:29
PROVIDERS: ADMIT Family Medicine; ATTEND Internal Medicine
PROC: 0DJD8ZZ Inspection of Lower Intestinal Tract, Via Natural or Artificial Opening Endoscopic (ICD-10-PCS; principal; 2018-10-29 18:00)
DX: K52.9 Noninfective gastroenteritis and colitis, unspecified (principal); K57.31 Diverticulosis of large intestine without perforation or abscess with bleeding; E11.9 Type 2 diabetes mellitus without complications; M81.0 Age-related osteoporosis without current pathological fracture; L40.9 Psoriasis, unspecified; E03.9 Hypothyroidism, unspecified; F41.9 Anxiety disorder, unspecified; M19.90 Unspecified osteoarthritis, unspecified site; K64.8 Other hemorrhoids; Z79.82 Long term (current) use of aspirin
CPT/HCPCS: 36415; 74176; 74177; 76856; 80053; 80061; 80069; 81003; 82270; 82962; 83036; 83605; 83690; 83735; 84443; 85025; 93005; 96374; 96376; G0378; C9113; J0360; J0744; J1170; J1815; J1885; J2060; J2270; J2405; J2920; J7030; J7512; Q9967